=== PATIENT | male | born 1945 | race African-American/Black ===

== ENCOUNTER → 2016-07-22 | Outpatient (CLI) | payer OTHER ==
[~2016-07-22] MED LIST: ADULT LOW DOSE81 MG PO; ALDACTONE25 MG PO; AMARYL4 MG PO; ASPIRIN EC325 M1 PO; ASPIRIN EC81 M1 PO; AVELOX 400 MG400 M1 PO; BACTRIM DS TAB1 EACH PO; BACTROBAN22 GM; CARVEDILOL12.5 MG PO; CARVEDILOL25 MG PO; CITRATE OF MAG300 ML PO; CITROMA296 ML PO; COLACE 100 MG100 MG PO; COLACE100 MG PO; COREG; COUMADIN 2.5MG2.5 M1 PO; COUMADIN 5 MG TA5 M1 PO; COZAAR 25 MG TA25 MG PO; COZAAR 50 MG TA50 M1 PO; COZAAR 50 MG TA50 M2 PO; DEMADEX20 MG PO; ENTRESTO 24 MG1 EACH PO; FLEXERIL PO; FUROSEMIDE 40 M40 M1 PO; FUROSEMIDE 80 M80 M1 PO; GLIMEPIRIDE4 MG PO; IMDUR 30 MG TAB30 M1 PO; IMDUR 60 MG TAB60 M1 PO; JANTOVEN5 MG PO; KEFLEX500 MG PO; LANOXIN 0.120.125 M1 PG; LANOXIN 0.120.125 M1 PO; LANOXIN 0.250.25 M1 PO; LANTUS100 UNIT/M SUBQ; LANTUSSOLASTAR SUBQ; LASIX 40 MG TAB40 M2 PO; LASIX 80 MG TAB80 M1 PO; LIPITOR10 MG PO; LIPITOR80 MG PO; LORTAB 5 MG/5001 TA1 PO; METOLAZONE 5 MG5 MG PO; MILK OF MA2400 MG/10 PO; MILRINONE IV; MILRINONE L1 MG/1 ML; MIRALAX17 GM PO; MUCINEX600 MG PO; NORCO 5-325 TA1 EACH PO; NORCO 7.5-3251 EACH PO; NYQUIL D COLD295 ML PO; PACERONE 200 M200 M1 PO; PACERONE 200 M200 MG PO; PANTOPRAZOLE SO40 M1 PO; PROTONIX40 M1 PO; SENNA-S TABLET1 EACH PO; SIMVASTATIN40 MG PO; SIMVASTATIN80 MG PO; TORSEMIDE20 MG PO; TYLENOL325 MG PO; ZETIA10 MG PO; ZOCOR40 MG PO
[2016-07-22 07:18] VITALS: BP 122/63
[2016-07-22 07:57] LABS: CALCIUM 9.3 mg/dL (8.5-10.1); CREATININE 2.3 mg/dL (0.6-1.3); POTASSIUM 4.5 mmol/L (3.5-5.1); PROTIME 20.7 Seconds (9.3-11.4)
== END ==
LOC: CATH 06:54
PROVIDERS: Internal Medicine Cardiovascular Disease
DX: I50.9 Heart failure, unspecified (principal)

== ENCOUNTER → 2016-07-26 | Outpatient (CLI) | payer OTHER | LOC: HYPER 06:58 | DX: I87.332 Chronic venous hypertension (idiopathic) with ulcer and inflammation of left lower extremity (principal); L97.821 Non-pressure chronic ulcer of other part of left lower leg limited to breakdown of skin; I73.9 Peripheral vascular disease, unspecified; I48.91 Unspecified atrial fibrillation; E11.40 Type 2 diabetes mellitus with diabetic neuropathy, unspecified; Z79.4 Long term (current) use of insulin; I11.0 Hypertensive heart disease with heart failure; I50.22 Chronic systolic (congestive) heart failure; Z87.891 Personal history of nicotine dependence ==

== ENCOUNTER → 2016-07-29 | Outpatient (CLI) | payer OTHER ==
[2016-07-29 07:09] VITALS: BP 104/56
[2016-07-29 07:49] LABS: INR 1.4; PROTIME 14.7 Seconds (9.3-11.4)
[2016-07-29 08:04] LABS: CALCIUM 9.3 mg/dL (8.5-10.1); CREATININE 2.5 mg/dL (0.6-1.3)
== END ==
LOC: CATH 06:25
PROVIDERS: Internal Medicine Cardiovascular Disease
DX: I50.9 Heart failure, unspecified (principal)

== ENCOUNTER → 2016-08-05 | Outpatient (CLI) | payer OTHER ==
[2016-08-05 07:21] VITALS: BP 107/60
[2016-08-05 07:42] LABS: CALCIUM 9.4 mg/dL (8.5-10.1); CREATININE 2.3 mg/dL (0.6-1.3); POTASSIUM 4.1 mmol/L (3.5-5.1)
[2016-08-05 07:50] LABS: INR 2.2
[2016-08-05 07:54] LABS: PROTIME 22.7 Seconds (9.3-11.4)
== END ==
LOC: CATH 06:46
PROVIDERS: Internal Medicine Cardiovascular Disease
DX: I50.9 Heart failure, unspecified (principal)

== ENCOUNTER → 2016-09-30 | Outpatient (CLI) | payer OTHER ==
[2016-09-30 07:04] VITALS: BP 119/56
[2016-09-30 07:45] LABS: CALCIUM 8.5 mg/dL (8.5-10.1); CREATININE 2.4 mg/dL (0.6-1.3)
[2016-09-30 07:46] LABS: INR 4.1; PROTIME 42.2 Seconds (9.3-11.4)
== END ==
LOC: CATH 06:38
PROVIDERS: Internal Medicine Cardiovascular Disease
DX: I50.9 Heart failure, unspecified (principal)

== ENCOUNTER → 2016-10-07 | Outpatient (CLI) | payer OTHER ==
[2016-10-07 07:18] VITALS: BP 119/59
[2016-10-07 07:41] LABS: CALCIUM 9.8 mg/dL (8.5-10.1); CREATININE 2.1 mg/dL (0.6-1.3); POTASSIUM 4.5 mmol/L (3.5-5.1)
[2016-10-07 07:56] LABS: INR 1.5; PROTIME 15.7 Seconds (9.3-11.4)
== END | disposition home or self-care (01) ==
LOC: CATH 09-23 07:54
PROVIDERS: Internal Medicine Cardiovascular Disease
DX: T82.598A Other mechanical complication of other cardiac and vascular devices and implants, initial encounter (principal); I50.23 Acute on chronic systolic (congestive) heart failure; N18.9 Chronic kidney disease, unspecified; E11.65 Type 2 diabetes mellitus with hyperglycemia; J44.1 Chronic obstructive pulmonary disease with (acute) exacerbation

== ENCOUNTER → 2016-10-12 | Outpatient (CLI) | payer OTHER | LOC: HYPER 07:08 | DX: I87.332 Chronic venous hypertension (idiopathic) with ulcer and inflammation of left lower extremity (principal); E11.622 Type 2 diabetes mellitus with other skin ulcer; L97.822 Non-pressure chronic ulcer of other part of left lower leg with fat layer exposed; E11.51 Type 2 diabetes mellitus with diabetic peripheral angiopathy without gangrene; I48.91 Unspecified atrial fibrillation; E11.40 Type 2 diabetes mellitus with diabetic neuropathy, unspecified; I50.22 Chronic systolic (congestive) heart failure; Z79.4 Long term (current) use of insulin; Z79.84 Long term (current) use of oral hypoglycemic drugs; Z86.73 Personal history of transient ischemic attack (TIA), and cerebral infarction without residual deficits; Z87.891 Personal history of nicotine dependence ==

== ENCOUNTER → 2016-10-21 | Outpatient (CLI) | payer OTHER ==
[2016-10-21 07:24] VITALS: BP 110/61
[2016-10-21 07:42] LABS: CALCIUM 10.1 mg/dL (8.5-10.1); CREATININE 2.7 mg/dL (0.7-1.3); POTASSIUM 4.1 mmol/L (3.5-5.1)
[2016-10-21 07:53] LABS: INR 1.6; PROTIME 16.6 Seconds (9.3-11.4)
== END ==
LOC: CATH 10-14 07:54
PROVIDERS: Internal Medicine Cardiovascular Disease
DX: I50.23 Acute on chronic systolic (congestive) heart failure (principal); I50.9 Heart failure, unspecified; N18.9 Chronic kidney disease, unspecified; E11.65 Type 2 diabetes mellitus with hyperglycemia; J44.1 Chronic obstructive pulmonary disease with (acute) exacerbation

== ENCOUNTER → 2016-11-01 | Outpatient (CLI) | payer OTHER ==
--- NOTE | ~2016-11-01 | 2DMMODE ---
[facility] [place] [address] 2 D/M-MODE ECHOCARDIOGRAM Name: FRYRASHIDA JR Room #: REG [facility]#: [id number] Admission: 11/01/16 Attend Phys: Mohan Kilpatrick MD Discharge: Date of : 41 Date of Service: 11/01/16 1211 Report #: [id number] THIS REPORT FOR: //name// APPROVED REPORT Study performed: 11/01/2016 10:21:55 EXAM: Comprehensive 2D, Doppler, and color-flow Echocardiogram Patient Location: Out-Patient Blood Pressure: 132/79 mmHg HR: 70 bpm Other Information Study Quality: Adequate Indications Ischemic cardiomyopathy. Hx: CABG, CHF, pacer/defibrillator, HTN, HLP, PVD 2D Dimensions RVDd: 37.42 mm LVEF(%): 21.22 (>50%) IVSd: 10.51 (7-11mm) LVOT Diam: 21.52 (18-24mm) LVDd: 78.30 mm PWd: 9.06 (7-11mm) Ascending Aorta: 32.31 mm LVDs: 70.40 (25-40mm) Aortic Root: 33.27 mm Modi's LVEF: 21.22 % Volumes Left Atrial Volume (Systole) Single Plane 4CH: 82.13 mL Single Plane 2CH: 60.68 mL LA ESV Index: 38.00 mL/m2 Aortic Valve AoV Peak Kalpesh.: 1.68 m/s AO Peak Gr.: 11.78 mmHg LV Max P.51 mmHg LV Max: 0.61 m/s Mitral Valve E/A Ratio: 0.8 MV Decel. Time: 152.38 ms MV E Max Kalpesh.: 0.94 m/s MV A Kalpesh.: 1.20 m/s [facility] [place] [address] 2 D/M-MODE ECHOCARDIOGRAM Name: RASHIDA FRY Room #: REG [facility]#: [id number] Admission: 11/01/16 Attend Phys: Mohan Kilpatrick MD Discharge: Date of : 41 Date of Service: 11/01/16 1211 Report #: [id number] MV PHT: 44.19 ms Pulmonary Valve PV Peak Kalpesh.: 0.76 m/s PV Peak Gr.: 2.30 mmHg Tricuspid Valve TR Peak Kalpesh.: 2.92 m/s RAP Estimate: 5.00 mmHg TR Peak Gr.: 34.21 mmHg RVSP: 39.00 mmHg Left Ventricle Left ventricle is severely dilated. There is normal left ventricular wall thickness. Left ventricular systolic function is severely decreased. LVEF is 15-20%. Grade I - abnormal relaxation pattern. Right Ventricle The right ventricle is normal size. Right ventricle is mildly hypokinetic. Pacemaker lead is present in the right ventricle. Atria Left atrium is mildly dilated. The right atrium size is normal. Aortic Valve Aortic valve is thickened and calcified. Trace aortic regurgitation. There is no aortic valvular stenosis. Mitral Valve Mitral valve leaflets are mildly thickened. Moderate mitral regurgitation. Tricuspid Valve The tricuspid valve is normal in structure. There is at least mild tricuspid regurgitation; eccentric jet, difficult to assess. The right atrial pressure is estimated at 5 mmHg.There is mild pulmonary hypertension with an estimated PAP of 39mmHg. Pulmonic Valve The pulmonary valve is normal in structure. Trace pulmonic regurgitation. Great Vessels The aortic root is normal in size. The ascending aorta is normal in size. Descending aorta is not well visualized. IVC is normal in size and collapses >50% with inspiration. [address] [address] 2 D/M-MODE ECHOCARDIOGRAM Name: FRYRASHIDA Room #: REG [facility]#: [id number] Admission: 11/01/16 Attend Phys: Mohan Kilpatrick MD Discharge: Date of : 41 Date of Service: 11/01/16 1211 Report #: [id number] Pericardium There is no pericardial effusion. <Conclusion> Left ventricle is severely dilated. Left ventricular systolic function is severely decreased. The right ventricle is normal size. Left atrium is mildly dilated. Aortic valve is thickened and calcified. Moderate mitral regurgitation. There is at least mild tricuspid regurgitation; eccentric jet, difficult to assess. The right atrial pressure is estimated at 5 mmHg.There is mild pulmonary hypertension with an estimated PAP of 39mmHg. <ELECTRONICALLY SIGNED> By: Mohan Kilpatrick MD 11/01/16 121 10 10 Mohan Kilpatrick MD /INF
== END ==
LOC: CV 11:15
DX: I25.5 Ischemic cardiomyopathy (principal); I50.9 Heart failure, unspecified; I10 Essential (primary) hypertension; E78.5 Hyperlipidemia, unspecified; Z95.1 Presence of aortocoronary bypass graft; Z95.0 Presence of cardiac pacemaker

== ENCOUNTER → 2016-11-03 | Outpatient (CLI) | payer OTHER | LOC: HYPER | DX: I87.332 Chronic venous hypertension (idiopathic) with ulcer and inflammation of left lower extremity (principal); L97.822 Non-pressure chronic ulcer of other part of left lower leg with fat layer exposed; E11.622 Type 2 diabetes mellitus with other skin ulcer; E11.40 Type 2 diabetes mellitus with diabetic neuropathy, unspecified; E11.51 Type 2 diabetes mellitus with diabetic peripheral angiopathy without gangrene; I48.2 Chronic atrial fibrillation; I50.22 Chronic systolic (congestive) heart failure; Z79.84 Long term (current) use of oral hypoglycemic drugs; Z79.4 Long term (current) use of insulin; Z86.73 Personal history of transient ischemic attack (TIA), and cerebral infarction without residual deficits; Z87.891 Personal history of nicotine dependence ==

== ENCOUNTER → 2016-11-04 | Outpatient (CLI) | payer OTHER ==
[2016-11-04 07:45] LABS: CALCIUM 9.3 mg/dL (8.5-10.1); CREATININE 2.4 mg/dL (0.7-1.3); POTASSIUM 4.6 mmol/L (3.5-5.1)
[2016-11-04 07:46] VITALS: BP 113/66
[2016-11-04 08:14] LABS: PROTIME 23.3 Seconds (9.3-11.4)
[2016-11-04 08:22] LABS: INR 2.2
[2016-11-04 08:28] LABS: ALBUMIN 3.6 g/dL (3.4-5.0); DIRECT BILIRUBIN 0.2 mg/dL (<0.1-0.3); TOTAL BILIRUBIN 0.8 mg/dL (<0.1-1.0); TOTAL PROTEIN 7.9 g/dL (6.4-8.2)
== END ==
LOC: CATH
PROVIDERS: Internal Medicine Cardiovascular Disease
DX: I50.9 Heart failure, unspecified (principal)

== ENCOUNTER → 2016-11-18 | Outpatient (CLI) | payer OTHER ==
[2016-11-18 07:17] VITALS: BP 118/64
[2016-11-18 07:51] LABS: CREATININE 1.8 mg/dL (0.7-1.3); POTASSIUM 4.4 mmol/L (3.5-5.1)
[2016-11-18 07:54] LABS: INR 1.5; PROTIME 15.2 Seconds (9.3-11.4)
== END ==
LOC: OPONC 06:48
PROVIDERS: Internal Medicine Cardiovascular Disease
DX: I50.9 Heart failure, unspecified (principal)
CPT/HCPCS: 95113

== ENCOUNTER → 2016-12-09 | Outpatient (CLI) | payer OTHER ==
[2016-12-09 07:05] VITALS: BP 106/65
[2016-12-09 07:44] LABS: CREATININE 2.6 mg/dL (0.7-1.3); POTASSIUM 4.6 mmol/L (3.5-5.1)
[2016-12-09 07:46] LABS: INR 2.1
[2016-12-09 07:48] LABS: PROTIME 22.2 Seconds (9.3-11.4)
== END ==
LOC: CATH 06:38
PROVIDERS: Internal Medicine Cardiovascular Disease
DX: I50.9 Heart failure, unspecified (principal)

== ENCOUNTER 2016-12-29 07:14 | Emergency (ER) | payer OTHER ==
[~2016-12-29] VITALS: Ht 172.7 cm; Wt 85.3 kg
--- NOTE | ~2016-12-29 | EKG ---
[address] [address] [place] [address] ELECTROCARDIOGRAM REPORT Name: RASHIDA FRY Room #: REG [facility]#: [id number] Admission: 12/29/16 Attend Phys: Discharge: Date of : 41 Report #: [id number] THIS REPORT FOR: //name// [facility] ED Test Date: 2016-12-29 Test Time: 07:19:19 Pat Name: RASHIDA FRY Department: Room: Gender: Estimator Printing Plate Making: ZOHRA : 1945 Requested By: Kenny Fermin Order Number: [id number] MD: Jai Cox Measurements Intervals [place] Rate: 93 P: 83 LA: 152 QRS: 234 QRSD: 179 T: 52 QT: 411 QTc: 512 Interpretive Statements Atrial-sensed ventricular-paced complexes No further analysis attempted due to paced rhythm Baseline wander in lead(s) V6 Compared to ECG 07/05/2016 18:46:05 No significant changes Electronically Signed On 12-29-2016 8:46:35 CDT by Jai Cox [email or web address] <ELECTRONICALLY SIGNED> By: Jai Cox MD, [facility] 12/29/16 0846 8 8 Jai Cox MD, [facility] /EPI
[2016-12-29 07:48] LABS: ABSOLUTE NEUTROPHILS 6.1 thou/uL (1.4-8.2); BASOPHILS 0.6 % (0.0-2.0); EOSINOPHILS 0.8 % (0.0-3.0); HEMATOCRIT 47.7 % (42.0-52.0); HEMOGLOBIN 15.3 gm/dL (14.0-18.0); LYMPHOCYTES 14.1 % (24.0-44.0); MCH 25.9 pg (26.0-34.0); MCV 80.9 fL (80.0-100.0); MONOCYTES 10.7 % (1.0-8.0); PLATELET COUNT 145 thou/uL (150-400); POLYS 73.8 % (36.0-66.0); RDW 16.7 % (10.5-14.5); WBC 8.3 thou/uL (4.0-11.0)
[2016-12-29 07:54] LABS: MANUAL DIFF NO
[2016-12-29 07:58] LABS: CALCIUM 9.1 mg/dL (8.5-10.1); CREATININE 2.6 mg/dL (0.7-1.3); POTASSIUM 4.4 mmol/L (3.5-5.1)
[2016-12-29 08:01] LABS: APTT 27.8 Seconds (24.5-32.8); INR 1.9
[2016-12-29 08:05] LABS: PROTIME 19.8 Seconds (9.3-11.4)
[2016-12-29] MEDS ORDERED: AMARYL4 MG PO (08:12)
[2016-12-29] MEDS ORDERED: DEMADEX20 MG PO (08:12)
[2016-12-29] MEDS ORDERED: ALDACTONE25 MG PO (08:13)
[2016-12-29] MEDS ORDERED: GENTAMICIN 0.1%15 G2 TOP (08:13)
[2016-12-29] MEDS ORDERED: POTASSIUM20 PO (08:13)
[2016-12-29] MEDS ORDERED: LIPITOR10 MG PO (08:14)
[2016-12-29] MEDS ORDERED: ENTRESTO 24 MG1 EACH PO (08:14)
[2016-12-29] MEDS ORDERED: CARVEDILOL12.5 MG PO (08:14)
[2016-12-29 08:31] LABS: ALBUMIN 3.4 g/dL (3.4-5.0); CK-MB MASS 2.8 ng/mL (<0.5-3.6); MAGNESIUM 2.2 mg/dL (1.8-2.4); TOTAL BILIRUBIN 0.8 mg/dL (<0.1-1.0); TOTAL PROTEIN 7.5 g/dL (6.4-8.2); TROPONIN-I 0.04 ng/mL (<0.04-0.07)
[2016-12-29] MEDS ORDERED: VENTOLIN HFA 1818 GM INH (09:04)
[2016-12-29 09:28] VITALS: BP 127/64
== END 2016-12-29 09:30 | disposition home or self-care (01) ==
LOC: ER 07:14
PROVIDERS: Emergency Medicine
DX: J98.11 Atelectasis (principal); I13.0 Hypertensive heart and chronic kidney disease with heart failure and stage 1 through stage 4 chronic kidney disease, or unspecified chronic kidney disease; E11.22 Type 2 diabetes mellitus with diabetic chronic kidney disease; N18.3 Chronic kidney disease, stage 3 (moderate); I50.9 Heart failure, unspecified; E78.00 Pure hypercholesterolemia, unspecified; I25.5 Ischemic cardiomyopathy; F10.99 Alcohol use, unspecified with unspecified alcohol-induced disorder; Z88.8 Allergy status to other drugs, medicaments and biological substances; Z86.73 Personal history of transient ischemic attack (TIA), and cerebral infarction without residual deficits; Z95.1 Presence of aortocoronary bypass graft; Z79.4 Long term (current) use of insulin; Z87.891 Personal history of nicotine dependence

== ENCOUNTER 2017-01-23 11:09 | Emergency (ER) | payer OTHER ==
[~2017-01-23] VITALS: Ht 172.7 cm; Wt 85.7 kg
[~2017-01-23 11:09] MED LIST changes: +GENTAMICIN 0.1%15 G2 TOP; +MUCINEX DM TABL1 TA1 PO; +POTASSIUM20 PO; +VENTOLIN HFA 1818 GM INH
[2017-01-23 12:02] LABS: URINE BILIRUBIN NEGATIVE (Negative); URINE BLOOD TRACE (Negative); URINE COLOR YELLOW; URINE GLUCOSE-RANDOM* NEGATIVE (Negative); URINE KETONES NEGATIVE (Negative); URINE LEUKOCYTES-REFLEX NEGATIVE (Negative); URINE PROTEIN (DIPSTICK) NEGATIVE (Negative); URINE UROBILINOGEN 0.2 E.U./dl (0.2-1.0)
[2017-01-23 12:25] LABS: ABSOLUTE NEUTROPHILS 6.2 thou/uL (1.4-8.2); BASOPHILS 0.9 % (0.0-2.0); EOSINOPHILS 1.2 % (0.0-3.0); HEMATOCRIT 43.2 % (42.0-52.0); HEMOGLOBIN 14.4 gm/dL (14.0-18.0); LYMPHOCYTES 10.4 % (24.0-44.0); MCHC 33.3 g/dL (28.0-37.0); MCV 78.1 fL (80.0-100.0); MONOCYTES 10.9 % (1.0-8.0); PLATELET COUNT 154 thou/uL (150-400); POLYS 76.6 % (36.0-66.0); RBC 5.52 mil/uL (4.50-6.00); RDW 16.2 % (10.5-14.5)
[2017-01-23 12:27] LABS: MANUAL DIFF NO
[2017-01-23 12:36] LABS: CALCIUM 9.7 mg/dL (8.5-10.1); CREATININE 3.2 mg/dL (0.7-1.3); POTASSIUM 4.5 mmol/L (3.5-5.1)
[2017-01-23 12:47] LABS: ALBUMIN 3.5 g/dL (3.4-5.0); TOTAL BILIRUBIN 1.1 mg/dL (<0.1-1.0); TOTAL PROTEIN 7.7 g/dL (6.4-8.2)
[2017-01-23 14:32] VITALS: BP 120/48
== END 2017-01-23 14:33 | disposition home or self-care (01) ==
LOC: ER 11:09
PROVIDERS: Physician Assistant
DX: E86.9 Volume depletion, unspecified (principal); I48.91 Unspecified atrial fibrillation; E78.00 Pure hypercholesterolemia, unspecified; I13.0 Hypertensive heart and chronic kidney disease with heart failure and stage 1 through stage 4 chronic kidney disease, or unspecified chronic kidney disease; E11.22 Type 2 diabetes mellitus with diabetic chronic kidney disease; N18.3 Chronic kidney disease, stage 3 (moderate); I50.9 Heart failure, unspecified; Z95.5 Presence of coronary angioplasty implant and graft; Z95.0 Presence of cardiac pacemaker; Z86.73 Personal history of transient ischemic attack (TIA), and cerebral infarction without residual deficits; Z88.8 Allergy status to other drugs, medicaments and biological substances; Z87.891 Personal history of nicotine dependence; Z79.4 Long term (current) use of insulin

== ENCOUNTER 2017-01-25 00:42 | Inpatient (IN) | payer OTHER ==
[~2017-01-25] VITALS: Ht 172.7 cm; Wt 88.0 kg
--- NOTE | ~2017-01-25 | EKG ---
[address] [address] ELECTROCARDIOGRAM REPORT Name: RASHIDA FRY Room #: 205-P ADM IN M.R.#: [id number] Admission: 01/25/17 Attend Phys: Mark Hamilton MD Discharge: Date of : 41 Report #: [id number] THIS REPORT FOR: //name// [facility] ED Test Date: 2017-01-25 Test Time: 01:12:29 Pat Name: RASHIDA FRY Department: Room: 205 Gender: M Aluminum Welder: [id number] : 1945 Requested By: Catreina Madrid Order Number: [id number] MD: Noel Alvarado Measurements Intervals [place] Rate: 72 P: 74 [place]: 157 QRS: 233 QRSD: 196 T: 73 QT: 483 QTc: 529 Interpretive Statements Sinus rhythm RBBB Compared to ECG 01/20/2017 02:31:25 No significant changes Electronically Signed On 01-25-2017 8:14:45 CDT by Noel Alvarado [email or web address] <ELECTRONICALLY SIGNED> By: Noel Alvarado MD 01/25/17 08 1 1 Noel Alvarado MD /MOUNA
[2017-01-25 00:42] VITALS: BP 150/94
[2017-01-25 03:15] VITALS: BP 145/87
[2017-01-25 07:03] LABS: ABSOLUTE NEUTROPHILS 6.1 thou/uL (1.4-8.2); BASOPHILS 0.8 % (0.0-2.0); EOSINOPHILS 0.5 % (0.0-3.0); HEMOGLOBIN 14.1 gm/dL (14.0-18.0); LYMPHOCYTES 12.6 % (24.0-44.0); MCH 25.6 pg (26.0-34.0); MCHC 32.8 g/dL (28.0-37.0); MCV 78.1 fL (80.0-100.0); MONOCYTES 10.5 % (1.0-8.0); PLATELET COUNT 150 thou/uL (150-400); POLYS 75.6 % (36.0-66.0); RBC 5.51 mil/uL (4.50-6.00); RDW 15.8 % (10.5-14.5); WBC 8.1 thou/uL (4.0-11.0)
[2017-01-25 07:54] VITALS: BP 136/83
[2017-01-25 08:01] LABS: MANUAL DIFF NO
[2017-01-25 09:18] LABS: ABG SAMPLE TYPE ARTERIAL; BE(vivo) 1.3 mmol/L (-2 to +3); HCO3 25.3 mmol/L (22.0-26.0); LACTATE 1.75 mmol/L (0.5-2.0); O2(CT) 19.4 mL/dL (15.0-23.0); O2Hb 91.3 % (92.0-98.0); PCO2 38.1 mmHg (35.0-45.0); PO2 65.6 mmHg (80.0-100.0); STICK SITE R.BRACHIAL; sO2 93.7 % (92.0-98.0); tCO2 26.5 mmol/L (24.0-30.0)
[2017-01-25 09:39] LABS: INR 2.5; PROTIME 26.3 Seconds (9.3-11.4)
[2017-01-25 09:41] LABS: CALCIUM 9.5 mg/dL (8.5-10.1); CREATININE 3.1 mg/dL (0.7-1.3); POTASSIUM 4.9 mmol/L (3.5-5.1)
[2017-01-25 09:42] LABS: TROPONIN-I 1.95 ng/mL (<0.04-0.07)
[2017-01-25 09:50] LABS: ABG SAMPLE TYPE ARTERIAL; BE(vivo) -0.2 mmol/L (-2 to +3); HCO3 24.4 mmol/L (22.0-26.0); LACTATE 1.33 mmol/L (0.5-2.0); O2(CT) 20.3 mL/dL (15.0-23.0); PCO2 39.6 mmHg (35.0-45.0); PO2 111.2 mmHg (80.0-100.0); STICK SITE R.BRACHIAL; pH 7.407 (7.360-7.450); sO2 98.1 % (92.0-98.0); tCO2 25.6 mmol/L (24.0-30.0)
[2017-01-25 12:05] VITALS: BP 131/86
[2017-01-25 15:40] VITALS: BP 118/78
[2017-01-25 20:07] VITALS: BP 132/71
[2017-01-26 00:03] VITALS: BP 126/80
[2017-01-26 04:25] LABS: HEMATOCRIT 42.3 % (42.0-52.0); HEMOGLOBIN 13.7 gm/dL (14.0-18.0); MCH 25.5 pg (26.0-34.0); MCHC 32.5 g/dL (28.0-37.0); MCV 78.6 fL (80.0-100.0); RBC 5.38 mil/uL (4.50-6.00); RDW 16.1 % (10.5-14.5); WBC 8.5 thou/uL (4.0-11.0)
[2017-01-26 04:30] VITALS: BP 123/67
[2017-01-26 04:37] LABS: CALCIUM 9.3 mg/dL (8.5-10.1); CREATININE 2.9 mg/dL (0.7-1.3); POTASSIUM 4.4 mmol/L (3.5-5.1)
[2017-01-26 07:45] VITALS: BP 116/63
[2017-01-26 12:27] VITALS: BP 127/77
[2017-01-26 16:32] VITALS: BP 125/80
[2017-01-26 20:00] VITALS: BP 114/68
[2017-01-27 04:00] VITALS: BP 125/78
[2017-01-27 07:10] LABS: ALBUMIN 3.5 g/dL (3.4-5.0); CALCIUM 9.6 mg/dL (8.5-10.1); CREATININE 2.8 mg/dL (0.7-1.3); PHOSPHORUS 3.8 mg/dL (2.5-4.9); POTASSIUM 3.9 mmol/L (3.5-5.1)
[2017-01-27 07:53] VITALS: BP 121/71
[2017-01-27] MEDS ORDERED: DEMADEX 2020 MG/1 TA PO ×2 (08:48)
[2017-01-27 10:25] VITALS: BP 121/71
== END 2017-01-27 11:54 | disposition home or self-care (01) | DRG 291 ==
LOC: ER 00:42 → 2N 07:37
PROVIDERS: Emergency Medicine; Hospitalist; Internal Medicine Pulmonary Disease; Nurse Practitioner Gerontology
DX: I13.0 Hypertensive heart and chronic kidney disease with heart failure and stage 1 through stage 4 chronic kidney disease, or unspecified chronic kidney disease (principal); I50.23 Acute on chronic systolic (congestive) heart failure; J96.01 Acute respiratory failure with hypoxia; N17.9 Acute kidney failure, unspecified; E78.00 Pure hypercholesterolemia, unspecified; N18.3 Chronic kidney disease, stage 3 (moderate); I25.10 Atherosclerotic heart disease of native coronary artery without angina pectoris; I25.5 Ischemic cardiomyopathy; E78.5 Hyperlipidemia, unspecified; E11.22 Type 2 diabetes mellitus with diabetic chronic kidney disease; E11.51 Type 2 diabetes mellitus with diabetic peripheral angiopathy without gangrene; I48.2 Chronic atrial fibrillation; G47.9 Sleep disorder, unspecified; E66.9 Obesity, unspecified; Z68.29 Body mass index [BMI] 29.0-29.9, adult; I25.2 Old myocardial infarction; Z86.73 Personal history of transient ischemic attack (TIA), and cerebral infarction without residual deficits; Z95.1 Presence of aortocoronary bypass graft; Z95.0 Presence of cardiac pacemaker; Z89.611 Acquired absence of right leg above knee; Z79.899 Other long term (current) drug therapy; Z88.8 Allergy status to other drugs, medicaments and biological substances; Z87.891 Personal history of nicotine dependence; Z79.01 Long term (current) use of anticoagulants
CPT/HCPCS: 10081

== ENCOUNTER 2017-02-03 03:03 | Inpatient (IN) | payer OTHER ==
[~2017-02-03] VITALS: Ht 172.7 cm; Wt 85.7 kg
--- NOTE | ~2017-02-03 | EKG ---
[address] [address] ELECTROCARDIOGRAM REPORT Name: ROME FRYLIE Dell Room #: 214-P ADM IN M.R.#: [id number] Admission: 02/03/17 Attend Phys: Guilherme Rockwell DO Discharge: Date of : 41 Report #: [id number] THIS REPORT FOR: //name// [facility] ED Test Date: 2017-02-03 Test Time: 03:12:23 Pat Name: RASHIDA FRY Department: Room: 214 Gender: M Macerator Operator: CLARITA : 1945 Requested By: Rachid Garces Order Number: [id number] MD: Jai Cox Measurements Intervals [place] Rate: 67 P: 0 IA: 59 QRS: 236 QRSD: 190 T: 107 QT: 509 QTc: 538 Interpretive Statements A-V dual-paced rhythm No further analysis attempted due to paced rhythm Compared to ECG 01/25/2017 01:12:29 No significant change was found Electronically Signed On 02-03-2017 17:35:14 CDT by Jai Cox [email or web address] <ELECTRONICALLY SIGNED> By: Jai Cox MD, [facility] 02/03/17 1735 0312 0312 Jai Cox MD, [facility] /EPI
[~2017-02-03 03:03] MED LIST changes: +DEMADEX 2020 MG/1 TA PO
[2017-02-03 03:30] VITALS: BP 146/71
[2017-02-03 04:02] LABS: ABSOLUTE NEUTROPHILS 6.2 thou/uL (1.4-8.2); BASOPHILS 0.9 % (0.0-2.0); EOSINOPHILS 0.6 % (0.0-3.0); HEMATOCRIT 41.5 % (42.0-52.0); HEMOGLOBIN 13.6 gm/dL (14.0-18.0); LYMPHOCYTES 12.6 % (24.0-44.0); MCH 25.7 pg (26.0-34.0); MCHC 32.9 g/dL (28.0-37.0); MCV 77.9 fL (80.0-100.0); MONOCYTES 11.9 % (1.0-8.0); PLATELET COUNT 177 thou/uL (150-400); RBC 5.32 mil/uL (4.50-6.00); RDW 16.1 % (10.5-14.5); WBC 8.3 thou/uL (4.0-11.0)
[2017-02-03 04:06] LABS: MANUAL DIFF NO
[2017-02-03 04:09] LABS: CALCIUM 9.4 mg/dL (8.5-10.1); CREATININE 2.6 mg/dL (0.7-1.3); POTASSIUM 4.9 mmol/L (3.5-5.1)
[2017-02-03 04:22] LABS: TROPONIN-I 0.09 ng/mL (<0.04-0.07)
[2017-02-03] MEDS ORDERED: ASPIR 8181 MG PO (04:37)
[2017-02-03] MEDS ORDERED: COZAAR 50 MG TA50 M2 PO (04:37)
[2017-02-03] MEDS ORDERED: COLACE100 MG PO (04:37)
[2017-02-03] MEDS ORDERED: HYDROCODONE-AP1 EAC6 (04:37)
[2017-02-03] MEDS ORDERED: IMDUR 60 MG TAB60 M1 PO (04:38)
[2017-02-03] MEDS ORDERED: MILRINONE-20 MG/100 IV (04:39)
[2017-02-03] MEDS ORDERED: AMITIZA 24 MCG24 MCG (04:39)
[2017-02-03] MEDS ORDERED: BACTROBAN CREAM30 G1 (04:40)
[2017-02-03] MEDS ORDERED: POTASSIUM20 (04:40)
[2017-02-03 04:48] LABS: INR 2.6; PROTIME 26.6 Seconds (9.3-11.4)
[2017-02-03 06:57] VITALS: BP 141/92
[2017-02-03 07:00] VITALS: BP 126/78
[2017-02-03 12:00] VITALS: BP 120/72
[2017-02-03 16:00] VITALS: BP 98/53
[2017-02-04 00:25] VITALS: BP 104/55
[2017-02-04 03:57] VITALS: BP 125/64
[2017-02-04 05:33] LABS: INR 3.1; PROTIME 30.9 Seconds (9.3-11.4)
[2017-02-04 07:00] VITALS: BP 113/67
[2017-02-04 11:00] VITALS: BP 108/59
[2017-02-04 15:19] VITALS: BP 101/62
[2017-02-04 20:00] VITALS: BP 116/67
[2017-02-05 04:00] VITALS: BP 124/69
[2017-02-05 04:10] LABS: HEMATOCRIT 43.1 % (42.0-52.0); HEMOGLOBIN 13.9 gm/dL (14.0-18.0); MCH 25.3 pg (26.0-34.0); MCHC 32.3 g/dL (28.0-37.0); MCV 78.5 fL (80.0-100.0); PLATELET COUNT 202 thou/uL (150-400); RBC 5.48 mil/uL (4.50-6.00); RDW 16.3 % (10.5-14.5); WBC 7.8 thou/uL (4.0-11.0)
[2017-02-05 04:11] LABS: INR 3.8; PROTIME 37.8 Seconds (9.3-11.4)
[2017-02-05 04:17] LABS: MANUAL DIFF YES
[2017-02-05 04:34] LABS: CALCIUM 9.1 mg/dL (8.5-10.1); CREATININE 2.5 mg/dL (0.7-1.3); POTASSIUM 4.1 mmol/L (3.5-5.1)
[2017-02-05 04:57] LABS: ABSOLUTE NEUTROPHILS 5.5 thou/uL (1.4-8.2); ANISOCYTOSIS 1+; ATYPICAL LYMPHS 2 %; TOTAL CELL COUNT 100
[2017-02-05 07:20] VITALS: BP 115/70
[2017-02-05] MEDS ORDERED: CEPHALEXIN 500500 M3 PO (09:32)
[2017-02-05] MEDS ORDERED: PACERONE 200 M200 M1 PO (09:32)
[2017-02-05 11:00] VITALS: BP 109/52
[2017-02-05 12:36] VITALS: BP 109/52
== END 2017-02-05 14:30 | disposition home or self-care (01) | DRG 291 ==
LOC: ER 03:03 → 2N 06:22 → EROBS 06:22 → 2N 07:31
PROVIDERS: Emergency Medicine; Family Medicine; Internal Medicine Cardiovascular Disease; Nurse Practitioner Gerontology
DX: I13.0 Hypertensive heart and chronic kidney disease with heart failure and stage 1 through stage 4 chronic kidney disease, or unspecified chronic kidney disease (principal); I50.23 Acute on chronic systolic (congestive) heart failure; I48.91 Unspecified atrial fibrillation; I25.5 Ischemic cardiomyopathy; I25.10 Atherosclerotic heart disease of native coronary artery without angina pectoris; E78.5 Hyperlipidemia, unspecified; R09.3 Abnormal sputum; E11.22 Type 2 diabetes mellitus with diabetic chronic kidney disease; N18.3 Chronic kidney disease, stage 3 (moderate); E78.00 Pure hypercholesterolemia, unspecified; Z96.89 Presence of other specified functional implants; Z95.1 Presence of aortocoronary bypass graft; Z86.73 Personal history of transient ischemic attack (TIA), and cerebral infarction without residual deficits; Z79.4 Long term (current) use of insulin; Z89.611 Acquired absence of right leg above knee; Z88.8 Allergy status to other drugs, medicaments and biological substances; Z87.891 Personal history of nicotine dependence; Z79.82 Long term (current) use of aspirin; Z79.899 Other long term (current) drug therapy
CPT/HCPCS: 10081

== ENCOUNTER → 2017-02-10 | Outpatient (CLI) | payer OTHER ==
[~2017-02-10] MED LIST changes: +AMITIZA 24 MCG24 MCG; +ASPIR 8181 MG PO; +BACTROBAN CREAM30 G1; +CEPHALEXIN 500500 M3 PO; +HYDROCODONE-AP1 EAC6; +MILRINONE-20 MG/100 IV; +POTASSIUM20
[2017-02-10 08:11] LABS: CALCIUM 9.6 mg/dL (8.5-10.1); CREATININE 2.3 mg/dL (0.7-1.3); POTASSIUM 4.7 mmol/L (3.5-5.1)
[2017-02-10 08:20] LABS: PROTIME 38.9 Seconds (9.3-11.4)
[2017-02-10 08:22] LABS: INR 4.1
== END ==
LOC: CATH 07:24
PROVIDERS: Internal Medicine Cardiovascular Disease
DX: I50.9 Heart failure, unspecified (principal)

== ENCOUNTER → 2017-02-17 | Outpatient (CLI) | payer OTHER ==
[2017-02-17 07:21] VITALS: BP 112/60
[2017-02-17 07:41] LABS: CALCIUM 9.8 mg/dL (8.5-10.1); CREATININE 2.5 mg/dL (0.7-1.3); POTASSIUM 4.3 mmol/L (3.5-5.1)
[2017-02-17 07:45] LABS: INR 1.4; PROTIME 14.6 Seconds (9.3-11.4)
== END ==
LOC: CATH 06:55
PROVIDERS: Internal Medicine Cardiovascular Disease
DX: I50.9 Heart failure, unspecified (principal)

== ENCOUNTER → 2017-02-21 | Outpatient (CLI) | payer OTHER ==
--- NOTE | ~2017-02-21 | SLE ---
[facility] [place] [address] [place] [address] POLYSOMNOGRAPHY STUDY Name: ROME FRYCARMEN Sharpe JR Room #: REG [facility]#: [id number] Admission: 02/21/17 Attend Phys: Teddy Reyes MD Discharge: Date of : 43 Report #: [id number] THIS REPORT FOR: //name// CC: Teddy Lizarraga The patient is 71-year-old, height 5 feet 8 inches and weight 191 pounds, usually goes to bed at midnight, gets out of bed at 10:00 a.m. or 11:00 a.m., does not feel refreshed. Positive snoring and daytime somnolence. COMMENTS: Possible Nestor-Ray respirations noted and PVCs. BASELINE PORTION: Total recording time 148 minutes, sleep efficiency 64%. DIAGNOSTIC RESPIRATORY SUMMARY: Central apnea 20, obstructive apnea 2, hypopnea 32. Apnea-hypopnea index 34 events per sleep hour. Non-REM AHI 42, REM AHI 8, supine AHI 62, left lateral 35, right lateral 25. Periodic limb movement with arousal index 0 events per sleep hour. Low oxygen saturation 86%, spending 3% of recording time less than 90%. CPAP TITRATION: Titrated at 5 and 7 cm water pressure. IMPRESSION: 1. Obstructive sleep apnea/hypopnea, G47.33. 2. Possible Nestor-Ray respirations. 3. A definite CPAP/BiPAP setting was not established. 4. Arrhythmias noted. SUGGESTIONS: 1. In addition to specific therapy, the patient should be cautioned regarding driving or operating dangerous machinery unless fully alert. The patient should be cautioned regarding the use of respiratory depressants. 2. Oral appliance or appropriate surgery may be considered with appropriate followup. 3. A trial of auto titrating CPAP between 5 and 10 cm water pressure is initially recommended. During our study, a Respironics Char View large mask was used with heated humidity. 4. If central apneas continue to occur, would bring the patient back in for a BiPAP/BiPAP ST study. 5. Further evaluation regarding arrhythmias is recommended. 6. Please do not hesitate to contact me if I may be of further assistance. By: 03 19 Teddy Reyes MD /nt
== END ==
LOC: SLEEPLAB 15:14
DX: G47.33 Obstructive sleep apnea (adult) (pediatric) (principal)

== ENCOUNTER → 2017-02-24 | Outpatient (CLI) | payer OTHER ==
[2017-02-24 07:03] VITALS: BP 118/62
[2017-02-24 07:29] LABS: CALCIUM 9.6 mg/dL (8.5-10.1); CREATININE 2.5 mg/dL (0.7-1.3); POTASSIUM 4.4 mmol/L (3.5-5.1)
[2017-02-24 07:36] LABS: INR 2.4; PROTIME 24.5 Seconds (9.3-11.4)
== END ==
LOC: CATH 06:37
PROVIDERS: Internal Medicine Cardiovascular Disease
DX: I50.9 Heart failure, unspecified (principal)

== ENCOUNTER → 2017-03-24 | Outpatient (CLI) | payer OTHER ==
[2017-03-24 07:24] VITALS: BP 103/56
[2017-03-24 07:44] LABS: CALCIUM 9.8 mg/dL (8.5-10.1); CREATININE 2.7 mg/dL (0.7-1.3); POTASSIUM 4.5 mmol/L (3.5-5.1)
[2017-03-24 07:48] LABS: INR 1.3; PROTIME 13.2 Seconds (9.3-11.4)
== END ==
LOC: CATH 06:49
PROVIDERS: Internal Medicine Cardiovascular Disease
DX: I50.9 Heart failure, unspecified (principal)

== ENCOUNTER → 2017-04-07 | Outpatient (CLI) | payer OTHER ==
[2017-04-07 07:28] VITALS: BP 99/57
[2017-04-07 07:37] LABS: CALCIUM 9.2 mg/dL (8.5-10.1); CREATININE 2.5 mg/dL (0.7-1.3); POTASSIUM 4.5 mmol/L (3.5-5.1)
[2017-04-07 07:39] LABS: INR 1.7; PROTIME 17.4 Seconds (9.3-11.4)
== END ==
LOC: CATH 03-03 10:16
PROVIDERS: Internal Medicine Cardiovascular Disease
DX: I50.9 Heart failure, unspecified (principal)

== ENCOUNTER → 2017-04-21 | Outpatient (CLI) | payer OTHER ==
[2017-04-21 07:16] VITALS: BP 114/59
[2017-04-21 07:57] LABS: CALCIUM 9.6 mg/dL (8.5-10.1); CREATININE 2.4 mg/dL (0.7-1.3); POTASSIUM 4.4 mmol/L (3.5-5.1)
[2017-04-21 07:58] LABS: INR 2.7; PROTIME 27.7 Seconds (9.3-11.4)
== END ==
LOC: CATH 03-10 10:34
PROVIDERS: Internal Medicine Cardiovascular Disease
DX: I50.9 Heart failure, unspecified (principal)

== ENCOUNTER → 2017-05-19 | Outpatient (CLI) | payer OTHER ==
[2017-05-19 07:35] VITALS: BP 111/48
[2017-05-19 07:47] LABS: INR 1.2; PROTIME 12.3 Seconds (9.3-11.4)
[2017-05-19 07:50] LABS: CALCIUM 9.5 mg/dL (8.5-10.1); CREATININE 2.7 mg/dL (0.7-1.3); POTASSIUM 4.2 mmol/L (3.5-5.1)
== END ==
LOC: CATH 06:48
PROVIDERS: Internal Medicine Cardiovascular Disease
DX: I50.9 Heart failure, unspecified (principal)

== ENCOUNTER → 2017-06-02 | Outpatient (CLI) | payer OTHER ==
[2017-06-02 07:51] LABS: PROTIME 20.7 Seconds (9.3-11.4)
[2017-06-02 10:33] VITALS: BP 114/63
[2017-06-02 10:59] LABS: CALCIUM 9.7 mg/dL (8.5-10.1); CREATININE 3.1 mg/dL (0.7-1.3); POTASSIUM 4.5 mmol/L (3.5-5.1)
== END ==
LOC: CATH 06:56
PROVIDERS: Internal Medicine Cardiovascular Disease
DX: I50.9 Heart failure, unspecified (principal)

== ENCOUNTER 2017-07-22 12:17 | Emergency (ER) | payer OTHER ==
[~2017-07-22] VITALS: Ht 172.7 cm; Wt 86.6 kg
[2017-07-22 12:18] VITALS: BP 148/89
[2017-12-07] MEDS ORDERED: COLACE100 MG PO (09:45)
[2018-03-23] MEDS ORDERED: LEVAQUIN 500 M500 M1 PO (04:31)
[2018-03-23] MEDS ORDERED: GUAIFEN-CODEINE10 ML PO (04:31)
== END 2017-07-22 13:39 | disposition home or self-care (01) ==
LOC: ER 12:17
DX: R06.2 Wheezing (principal); I50.9 Heart failure, unspecified; E11.9 Type 2 diabetes mellitus without complications; I48.91 Unspecified atrial fibrillation; E78.00 Pure hypercholesterolemia, unspecified; I12.9 Hypertensive chronic kidney disease with stage 1 through stage 4 chronic kidney disease, or unspecified chronic kidney disease; N18.3 Chronic kidney disease, stage 3 (moderate); Z87.891 Personal history of nicotine dependence; Z88.8 Allergy status to other drugs, medicaments and biological substances

== ENCOUNTER 2017-07-27 03:10 | Emergency (ER) | payer OTHER ==
[~2017-07-27] VITALS: Ht 172.7 cm; Wt 88.9 kg
[2017-07-27 03:15] VITALS: BP 114/64
[2017-07-27] MEDS ORDERED: ENTRESTO 49 MG1 EACH PO (03:23)
[2017-07-27] MEDS ORDERED: ALDACTONE25 MG PO (03:23)
[2017-07-27] MEDS ORDERED: CARVEDILOL12.5 MG PO (03:23)
[2017-07-27] MEDS ORDERED: LANTUS100 UNIT/M SUBQ (03:24)
[2017-07-27] MEDS ORDERED: DEMADEX20 MG PO ×2 (03:25→03:45)
[2017-07-27] MEDS ORDERED: PACERONE 200 M200 MG PO (03:45)
[2017-07-27] MEDS ORDERED: PANTOPRAZOLE SO40 M1 PO (03:45)
[2017-12-07] MEDS ORDERED: COLACE100 MG PO (09:45)
[2018-03-23] MEDS ORDERED: GUAIFEN-CODEINE10 ML PO (04:31)
[2018-03-23] MEDS ORDERED: LEVAQUIN 500 M500 M1 PO (04:31)
== END 2017-07-27 03:58 | disposition home or self-care (01) ==
LOC: ER 03:10
DX: Z76.0 Encounter for issue of repeat prescription (principal); I13.0 Hypertensive heart and chronic kidney disease with heart failure and stage 1 through stage 4 chronic kidney disease, or unspecified chronic kidney disease; N18.3 Chronic kidney disease, stage 3 (moderate); E11.22 Type 2 diabetes mellitus with diabetic chronic kidney disease; I50.9 Heart failure, unspecified; I48.91 Unspecified atrial fibrillation; E78.00 Pure hypercholesterolemia, unspecified; Z86.73 Personal history of transient ischemic attack (TIA), and cerebral infarction without residual deficits; Z88.8 Allergy status to other drugs, medicaments and biological substances; Z87.891 Personal history of nicotine dependence; Z79.4 Long term (current) use of insulin

== ENCOUNTER → 2017-08-11 | Outpatient (CLI) | payer OTHER ==
[~2017-08-11] MED LIST changes: +ENTRESTO 49 MG1 EACH PO
[2017-08-11 08:16] LABS: CALCIUM 9.6 mg/dL (8.5-10.1); CREATININE 2.6 mg/dL (0.7-1.3); POTASSIUM 4.1 mmol/L (3.5-5.1)
[2017-08-11 08:17] LABS: INR 1.9; PROTIME 18.6 Seconds (9.3-11.4)
[2017-08-11 08:18] VITALS: BP 111/64
== END ==
LOC: CATH 06:43
PROVIDERS: Internal Medicine Cardiovascular Disease
DX: I50.9 Heart failure, unspecified (principal)

== ENCOUNTER → 2017-08-25 | Outpatient (CLI) | payer OTHER ==
[2017-08-25 07:41] LABS: CALCIUM 9.6 mg/dL (8.5-10.1); CREATININE 3.2 mg/dL (0.7-1.3); POTASSIUM 4.5 mmol/L (3.5-5.1)
[2017-08-25 07:47] LABS: PROTIME 25.4 Seconds (9.3-11.4)
[2017-08-25 07:49] LABS: INR 2.5
[2017-08-25 11:40] VITALS: BP 101/56
== END ==
LOC: CATH 07:07
PROVIDERS: Internal Medicine Cardiovascular Disease
DX: I50.9 Heart failure, unspecified (principal)
CPT/HCPCS: 95000; 95001

== ENCOUNTER → 2017-09-01 | Outpatient (CLI) | payer OTHER ==
[2017-09-01 07:40] LABS: HEMATOCRIT 45.1 % (42.0-52.0); HEMOGLOBIN 14.4 gm/dL (14.0-18.0); MCH 23.3 pg (26.0-34.0); MCV 72.8 fL (80.0-100.0); PLATELET COUNT 182 thou/uL (150-400); RDW 17.7 % (10.5-14.5); WBC 6.7 thou/uL (4.0-11.0)
[2017-09-01 07:45] LABS: INR 1.7; PROTIME 17.2 Seconds (9.3-11.4)
[2017-09-01 07:47] LABS: CALCIUM 10.1 mg/dL (8.5-10.1); POTASSIUM 4.9 mmol/L (3.5-5.1)
[2017-09-01 07:49] LABS: POTASSIUM 4.9 mmol/L (3.5-5.1)
[2017-09-01 07:55] LABS: ALBUMIN 3.8 g/dL (3.4-5.0); PHOSPHORUS 3.6 mg/dL (2.5-4.9); TOTAL BILIRUBIN 0.7 mg/dL (<0.1-1.0); TOTAL PROTEIN 7.6 g/dL (6.4-8.2)
[2017-09-01 08:17] LABS: URINE BILIRUBIN NEGATIVE (Negative); URINE BLOOD NEGATIVE (Negative); URINE CLARITY CLEAR; URINE COLOR YELLOW; URINE GLUCOSE-RANDOM* NEGATIVE (Negative); URINE KETONES NEGATIVE (Negative); URINE LEUKOCYTES NEGATIVE (Negative); URINE NITRITE NEGATIVE (Negative); URINE PROTEIN (DIPSTICK) NEGATIVE (Negative); URINE UROBILINOGEN 0.2 E.U./dl (0.2-1.0)
[2017-09-01 08:23] LABS: URINE CREATININE-RANDOM* 26.3 mg/dL
[2017-09-01 08:31] LABS: ABSOLUTE NEUTROPHILS 3.8 thou/uL (1.4-8.2); ANISOCYTOSIS 1+; MICROCYTES 2+; PLATELET ESTIMATE NORMAL; POLYCHROMASIA SLIGHT
[2017-09-01 09:19] VITALS: BP 115/63
== END ==
LOC: CATH 07:04
PROVIDERS: Internal Medicine Cardiovascular Disease
DX: I50.9 Heart failure, unspecified (principal)

== ENCOUNTER → 2017-09-15 | Outpatient (CLI) | payer OTHER ==
[2017-09-15 07:38] VITALS: BP 127/71
[2017-09-15 07:38] LABS: PROTIME 31.1 Seconds (9.3-11.4)
[2017-09-15 07:39] LABS: CALCIUM 9.4 mg/dL (8.5-10.1); CREATININE 2.8 mg/dL (0.7-1.3); POTASSIUM 4.1 mmol/L (3.5-5.1)
[2017-09-15 07:40] LABS: INR 3.1
== END ==
LOC: CATH 06:56
PROVIDERS: Internal Medicine Cardiovascular Disease
DX: I50.9 Heart failure, unspecified (principal)

== ENCOUNTER → 2017-10-06 | Outpatient (CLI) | payer OTHER, SELFPAY ==
[2017-10-06 08:16] VITALS: BP 112/63
[2017-10-06 12:28] LABS: CREATININE 3.5 mg/dL (0.7-1.3); POTASSIUM 4.6 mmol/L (3.5-5.1)
[2017-10-06 12:35] LABS: INR 1.5; PROTIME 15.5 Seconds (9.3-11.4)
== END ==
LOC: CATH 07:02
PROVIDERS: Internal Medicine Cardiovascular Disease
DX: I50.9 Heart failure, unspecified (principal); I25.5 Ischemic cardiomyopathy

== ENCOUNTER → 2017-10-13 | Outpatient (CLI) | payer OTHER, SELFPAY ==
[2017-10-13 07:45] VITALS: BP 115/67
[2017-10-13 07:58] LABS: CALCIUM 9.8 mg/dL (8.5-10.1); CREATININE 3.1 mg/dL (0.7-1.3); POTASSIUM 4.2 mmol/L (3.5-5.1)
[2017-10-13 08:06] LABS: PROTIME 21.4 Seconds (9.3-11.4)
[2017-10-13 08:09] LABS: INR 2.1
== END ==
LOC: CATH 07:10
PROVIDERS: Internal Medicine Cardiovascular Disease
DX: I50.9 Heart failure, unspecified (principal); I25.5 Ischemic cardiomyopathy

== ENCOUNTER → 2017-10-20 | Outpatient (CLI) | payer OTHER ==
[2017-10-20 07:40] VITALS: BP 102/67
[2017-10-20 08:04] LABS: INR 1.7
[2017-10-20 08:06] LABS: PROTIME 17.5 Seconds (9.3-11.4)
[2017-10-20 08:10] LABS: CALCIUM 9.7 mg/dL (8.5-10.1); CREATININE 4.4 mg/dL (0.7-1.3); POTASSIUM 5.2 mmol/L (3.5-5.1)
== END ==
LOC: CATH 09-29 07:39
PROVIDERS: Internal Medicine Cardiovascular Disease
DX: I50.9 Heart failure, unspecified (principal); I25.5 Ischemic cardiomyopathy

== ENCOUNTER → 2017-10-27 | Outpatient (CLI) | payer OTHER ==
[2017-10-27 09:07] LABS: CALCIUM 9.8 mg/dL (8.5-10.1); CREATININE 3.4 mg/dL (0.7-1.3); POTASSIUM 4.3 mmol/L (3.5-5.1)
[2017-10-27 09:17] LABS: INR 1.9; PROTIME 19.7 Seconds (9.3-11.4)
[2017-10-27 11:49] VITALS: BP 95/57
== END ==
LOC: CATH 07:12
PROVIDERS: Internal Medicine Cardiovascular Disease
DX: I50.9 Heart failure, unspecified (principal); I25.5 Ischemic cardiomyopathy

== ENCOUNTER → 2017-11-03 | Outpatient (CLI) | payer OTHER ==
[2017-11-03 07:57] LABS: CALCIUM 9.3 mg/dL (8.5-10.1); CREATININE 2.8 mg/dL (0.7-1.3); POTASSIUM 4.2 mmol/L (3.5-5.1)
[2017-11-03 07:59] LABS: INR 1.8; PROTIME 18.1 Seconds (9.3-11.4)
[2017-11-03 09:12] VITALS: BP 108/58
== END ==
LOC: CATH 07:16
PROVIDERS: Internal Medicine Cardiovascular Disease
DX: I13.0 Hypertensive heart and chronic kidney disease with heart failure and stage 1 through stage 4 chronic kidney disease, or unspecified chronic kidney disease (principal); N18.4 Chronic kidney disease, stage 4 (severe); I50.9 Heart failure, unspecified; I25.5 Ischemic cardiomyopathy

== ENCOUNTER → 2017-11-10 | Outpatient (CLI) | payer OTHER ==
[2017-11-10 07:27] VITALS: BP 120/74
[2017-11-10 07:48] LABS: CALCIUM 9.5 mg/dL (8.5-10.1); CREATININE 2.6 mg/dL (0.7-1.3); POTASSIUM 3.8 mmol/L (3.5-5.1)
[2017-11-10 07:49] LABS: INR 1.6
[2017-11-10 07:51] LABS: PROTIME 16.5 Seconds (9.3-11.4)
== END ==
LOC: CATH 09-08 11:34
PROVIDERS: Internal Medicine Cardiovascular Disease
DX: I13.0 Hypertensive heart and chronic kidney disease with heart failure and stage 1 through stage 4 chronic kidney disease, or unspecified chronic kidney disease (principal); I25.5 Ischemic cardiomyopathy; I50.9 Heart failure, unspecified; N18.4 Chronic kidney disease, stage 4 (severe)

== ENCOUNTER → 2017-11-24 | Outpatient (CLI) | payer OTHER ==
[2017-11-24 08:44] LABS: CALCIUM 9.2 mg/dL (8.5-10.1); CREATININE 2.5 mg/dL (0.7-1.3); POTASSIUM 4.1 mmol/L (3.5-5.1)
[2017-11-24 08:48] LABS: ALBUMIN 3.4 g/dL (3.4-5.0); PHOSPHORUS 3.3 mg/dL (2.5-4.9)
[2017-11-24 08:52] LABS: PROTIME 19.6 Seconds (9.3-11.4)
[2017-11-24 08:54] LABS: INR 1.9
[2017-11-24 09:59] VITALS: BP 131/72
== END ==
LOC: CATH 06:57
PROVIDERS: Internal Medicine Cardiovascular Disease
DX: I13.0 Hypertensive heart and chronic kidney disease with heart failure and stage 1 through stage 4 chronic kidney disease, or unspecified chronic kidney disease (principal); I25.5 Ischemic cardiomyopathy; I50.9 Heart failure, unspecified; N18.4 Chronic kidney disease, stage 4 (severe)

== ENCOUNTER 2017-12-14 04:27 | Inpatient (IN) | payer OTHER ==
[~2017-12-14] VITALS: Ht 172.7 cm; Wt 88.9 kg
--- NOTE | ~2017-12-14 | HC ---
[facility] [place] [address] [address] CONSULTATION Name: RASHIDA FRY JR Room #: 353-P [facility] IN ..#: [id number] Admission: 12/14/17 Attend Phys: Manuel Soliz MD Discharge: Date of : 43 Report #: [id number] THIS REPORT FOR: //name// CC: Manuel Lizarraga INDICATION: Dyspnea. HISTORY OF PRESENT ILLNESS: This is a 72-year-old gentleman presenting with dizziness, weakness, and orthopnea. He was just hospitalized for a CHF exacerbation last week. He has a history of CABG, ischemic cardiomyopathy, CHF, ICD, paroxysmal atrial fibrillation, CVA, diabetes mellitus, chronic kidney disease and peripheral vascular disease. He receives weekly infusions of milrinone. He reports feeling lightheadedness, but denies any episodes of syncope yesterday. He has noticed increased orthopnea, unable to lay in his usual position. There is no history of chest pains, palpitations, fever or diarrhea. PAST MEDICAL HISTORY: CABG, ischemic cardiomyopathy, multiple admissions for CHF. Ejection fraction in the 15% range. Paroxysmal atrial fibrillation, ICD, CVA, diabetes, chronic kidney disease, right AKA. ALLERGIES: To JACEK INHIBITOR. MEDICATIONS: Include Lipitor 40 mg daily, Coumadin, Protonix, aspirin, Imdur, Coreg 12.5 twice a day, Entresto 49/51 mg b.i.d., Aldactone 25 mg daily, torsemide 40 mg twice a day, and glimepiride. SOCIAL HISTORY: Denies tobacco use. FAMILY HISTORY: Negative for premature CAD. REVIEW OF SYSTEMS: A full 10-point review of systems performed, only the pertinent positives and negatives are described in the HPI. PHYSICAL EXAMINATION: VITAL SIGNS: Blood pressure is 130/70, heart rate is 87 beats per minute. GENERAL APPEARANCE: This is an overweight male, in mild respiratory distress. HEAD AND EYES: Normocephalic. Sclerae are anicteric. ENT: Oral mucosa moist. NECK: Supple. LUNGS: Diminished breath sounds at the bases. CARDIAC: Distant heart sounds, S1, S2 positive. ABDOMEN: Soft, protuberant. EXTREMITIES: Right AKA. Left lower extremity 2+ edema. ECG reveals atrial sensed, ventricular paced rhythm. [facility] [address] [place] [address] CONSULTATION Name: RASHIDA FRY Room #: 353-P [facility] IN ..#: [id number] Admission: 12/14/17 Attend Phys: Manuel Soliz MD Discharge: Date of : 41 Report #: [id number] LABORATORY VALUES: White count is 10, hemoglobin is 12.5. Sodium is 138, creatinine is 2.9. INR is 1.7. ASSESSMENT AND PLAN: 1. Acute on chronic congestive heart failure (mixed type). The patient was just hospitalized for similar complaints last week. It may be that the current dose of torsemide 40 mg b.i.d. may be ineffective. His kidney disease may be worsening. The plan is to start IV Lasix, may require the addition of Zaroxolyn. 2. Coronary artery disease/coronary artery bypass grafting, stable with no anginal episodes. The troponin level is negative. 3. Paroxysmal atrial fibrillation, continue with warfarin, keep INR between 2 and 3. 4. ICD, stable with no discharges. 5. Chronic kidney disease, follow creatinine level for now. Known to the nephrology service. 6. Diabetes mellitus, continue with hypoglycemics and check fingersticks. <ELECTRONICALLY SIGNED> By: Mohan Kilpatrick MD 12/15/17 0850 0905 1443 Mohan Kilpatrick MD /nt
--- NOTE | ~2017-12-14 | EKG ---
[address] [facility] [address] ELECTROCARDIOGRAM REPORT Name: RASHIDA FRY Room #: 170-1 ADM IN ..#: [id number] Admission: 12/14/17 Attend Phys: Manuel Soliz MD Discharge: Date of : 41 Report #: [id number] THIS REPORT FOR: //name// [facility] ED Test Date: 2017-12-14 Test Time: 04:36:39 Pat Name: RASHIDA FRY Department: Room: Gender: M Wash Rack Operator: RUBI : 1945 Requested By: Kenny Fermin Order Number: [id number] MD: Jai Cox Measurements Intervals [place] Rate: 87 P: 80 [place]: 139 QRS: 247 QRSD: 192 T: 82 QT: 443 QTc: 533 Interpretive Statements Atrial-sensed ventricular-paced complexes No further analysis attempted due to paced rhythm Compared to ECG 12/07/2017 08:22:29 No significant changes Electronically Signed On 12-14-2017 8:31:10 CDT by Jai Cox [email or web address] <ELECTRONICALLY SIGNED> By: Jai Cox MD, [facility] 12/14/17 0831 0436 0436 Jai Cox MD, [facility] /EPI
[2017-12-14 04:28] VITALS: BP 124/74
[2017-12-14 05:24] LABS: ABSOLUTE NEUTROPHILS 7.4 thou/uL (1.4-8.2); BASOPHILS 0.3 % (0.0-2.0); EOSINOPHILS 0.8 % (0.0-3.0); HEMATOCRIT 39.2 % (42.0-52.0); HEMOGLOBIN 12.5 gm/dL (14.0-18.0); MCH 23.7 pg (26.0-34.0); MCV 74.1 fL (80.0-100.0); MONOCYTES 11.7 % (1.0-8.0); PLATELET COUNT 181 thou/uL (150-400); POLYS 74.2 % (36.0-66.0); RBC 5.29 mil/uL (4.50-6.00); RDW 18.5 % (10.5-14.5)
[2017-12-14 05:36] LABS: CALCIUM 9.5 mg/dL (8.5-10.1); CREATININE 2.9 mg/dL (0.7-1.3); POTASSIUM 4.4 mmol/L (3.5-5.1)
[2017-12-14 05:39] LABS: APTT 31.7 Seconds (24.5-32.8); INR 1.7
[2017-12-14 05:43] LABS: ALBUMIN 3.6 g/dL (3.4-5.0); MAGNESIUM 2.9 mg/dL (1.8-2.4); TOTAL BILIRUBIN 1.4 mg/dL (<0.1-1.0); TOTAL PROTEIN 7.4 g/dL (6.4-8.2); TROPONIN-I 0.04 ng/mL (<0.06)
[2017-12-14 05:57] LABS: ANISOCYTOSIS 1+; MICROCYTES 2+; PLATELET ESTIMATE NORMAL; POLYCHROMASIA SLIGHT
[2017-12-14 08:03] VITALS: BP 135/85
[2017-12-14 17:17] VITALS: BP 125/77
[2017-12-14 19:26] VITALS: BP 117/63
[2017-12-15] VITALS: BP 127/81
[2017-12-15 04:54] VITALS: BP 134/78
[2017-12-15 06:25] LABS: ABSOLUTE NEUTROPHILS 12.4 thou/uL (1.4-8.2); BASOPHILS 0.2 % (0.0-2.0); HEMATOCRIT 40.5 % (42.0-52.0); HEMOGLOBIN 12.7 gm/dL (14.0-18.0); LYMPHOCYTES 5.9 % (24.0-44.0); MCH 23.2 pg (26.0-34.0); MCHC 31.5 g/dL (28.0-37.0); MCV 73.8 fL (80.0-100.0); MONOCYTES 8.7 % (1.0-8.0); PLATELET COUNT 189 thou/uL (150-400); POLYS 85.2 % (36.0-66.0); RBC 5.48 mil/uL (4.50-6.00); RDW 18.5 % (10.5-14.5); WBC 14.5 thou/uL (4.0-11.0)
[2017-12-15 06:32] LABS: INR 2.1; PROTIME 21.1 Seconds (9.3-11.4)
[2017-12-15 06:36] LABS: CALCIUM 9.8 mg/dL (8.5-10.1); CREATININE 2.7 mg/dL (0.7-1.3); MAGNESIUM 2.8 mg/dL (1.8-2.4); POTASSIUM 5.1 mmol/L (3.5-5.1)
[2017-12-15 07:29] VITALS: BP 135/90
[2017-12-15 07:35] LABS: ANISOCYTOSIS 1+; HYPOCHROMASIA 1+; MICROCYTES 1+
[2017-12-15 11:57] VITALS: BP 135/84
[2017-12-15 15:35] VITALS: BP 103/54
[2017-12-15 19:20] VITALS: BP 107/64
[2017-12-16 03:28] VITALS: BP 114/68
[2017-12-16 05:15] LABS: HEMATOCRIT 38.7 % (42.0-52.0); HEMOGLOBIN 12.1 gm/dL (14.0-18.0); MCH 23.2 pg (26.0-34.0); MCHC 31.2 g/dL (28.0-37.0); MCV 74.6 fL (80.0-100.0); RBC 5.19 mil/uL (4.50-6.00); RDW 18.4 % (10.5-14.5); WBC 13.1 thou/uL (4.0-11.0)
[2017-12-16 05:23] LABS: CALCIUM 9.4 mg/dL (8.5-10.1); CREATININE 2.9 mg/dL (0.7-1.3)
[2017-12-16 06:46] LABS: INR 2.5; PROTIME 25.1 Seconds (9.3-11.4)
[2017-12-16 07:34] VITALS: BP 116/70
[2017-12-16 12:25] VITALS: BP 111/67
[2017-12-16] MEDS ORDERED: POTASSIUM20 PO (15:36)
[2017-12-16] MEDS ORDERED: FLOMAX0.4 MG PO (15:36)
[2017-12-16] MEDS ORDERED: ALDACTONE25 MG PO (15:44)
[2017-12-16 15:56] VITALS: BP 111/67
[2017-12-16 16:12] VITALS: BP 111/67
== END 2017-12-16 16:45 | disposition home or self-care (01) | DRG 682 ==
LOC: ER 04:27 → EROBS 07:44 → 3W 07:44 → ENTRNSPT 12-16 16:21 → 3W 12-16 16:45
PROVIDERS: Emergency Medicine; Hospitalist; Nurse Practitioner; Nurse Practitioner Acute Care
PROC: 5A09357 Assistance with Respiratory Ventilation, Less than 24 Consecutive Hours, Continuous Positive Airway Pressure (ICD-10-PCS; principal; 2017-12-14)
DX: N17.9 Acute kidney failure, unspecified (principal); J96.21 Acute and chronic respiratory failure with hypoxia; I50.43 Acute on chronic combined systolic (congestive) and diastolic (congestive) heart failure; I13.0 Hypertensive heart and chronic kidney disease with heart failure and stage 1 through stage 4 chronic kidney disease, or unspecified chronic kidney disease; Z79.4 Long term (current) use of insulin; E78.00 Pure hypercholesterolemia, unspecified; I25.5 Ischemic cardiomyopathy; I48.0 Paroxysmal atrial fibrillation; I25.10 Atherosclerotic heart disease of native coronary artery without angina pectoris; E11.22 Type 2 diabetes mellitus with diabetic chronic kidney disease; E11.649 Type 2 diabetes mellitus with hypoglycemia without coma; I27.20 Pulmonary hypertension, unspecified; K59.09 Other constipation; E78.5 Hyperlipidemia, unspecified; R33.9 Retention of urine, unspecified; Z60.2 Problems related to living alone; N18.4 Chronic kidney disease, stage 4 (severe); E86.0 Dehydration; Z95.0 Presence of cardiac pacemaker; Z95.1 Presence of aortocoronary bypass graft; Z86.73 Personal history of transient ischemic attack (TIA), and cerebral infarction without residual deficits; Z89.611 Acquired absence of right leg above knee; Z88.8 Allergy status to other drugs, medicaments and biological substances; Z87.891 Personal history of nicotine dependence; Z79.01 Long term (current) use of anticoagulants; Z79.82 Long term (current) use of aspirin; Z79.899 Other long term (current) drug therapy
CPT/HCPCS: 10879

== ENCOUNTER → 2017-12-22 | Outpatient (CLI) | payer OTHER ==
[~2017-12-22] MED LIST changes: +FLOMAX0.4 MG PO; +METOLAZONE 2.52.5 MG PO; +NEURONTIN 300300 M1 PO
[2017-12-22 07:53] VITALS: BP 136/66
[2017-12-22 08:02] LABS: CALCIUM 9.5 mg/dL (8.5-10.1); CREATININE 2.5 mg/dL (0.7-1.3); POTASSIUM 4.2 mmol/L (3.5-5.1)
[2017-12-22 08:25] LABS: INR 2.1
[2017-12-22 08:27] LABS: PROTIME 20.6 Seconds (9.3-11.4)
== END ==
LOC: CATH 06:53
PROVIDERS: Internal Medicine Cardiovascular Disease
DX: I50.9 Heart failure, unspecified (principal)

== ENCOUNTER → 2017-12-29 | Outpatient (CLI) | payer OTHER ==
[2017-12-29 07:33] LABS: CALCIUM 9.5 mg/dL (8.5-10.1); CREATININE 2.6 mg/dL (0.7-1.3); POTASSIUM 4.1 mmol/L (3.5-5.1)
[2017-12-29 07:39] LABS: ALBUMIN 3.3 g/dL (3.4-5.0); PHOSPHORUS 3.4 mg/dL (2.5-4.9); TOTAL BILIRUBIN 1.4 mg/dL (<0.1-1.0); TOTAL PROTEIN 7.3 g/dL (6.4-8.2)
[2017-12-29 07:42] LABS: INR 2.5; PROTIME 25.1 Seconds (9.3-11.4)
[2017-12-29 11:57] VITALS: BP 130/73
== END ==
LOC: CATH 06:50
PROVIDERS: Internal Medicine Cardiovascular Disease
DX: I50.9 Heart failure, unspecified (principal)

== ENCOUNTER → 2018-01-05 | Outpatient (CLI) | payer OTHER ==
[2018-01-05 07:38] LABS: CALCIUM 9.3 mg/dL (8.5-10.1); CREATININE 2.5 mg/dL (0.7-1.3); POTASSIUM 4.4 mmol/L (3.5-5.1)
[2018-01-05 07:43] LABS: INR 1.8; PROTIME 18.7 Seconds (9.3-11.4)
[2018-01-05 08:02] VITALS: BP 104/60
== END ==
LOC: CATH 07:01
PROVIDERS: Internal Medicine Cardiovascular Disease
DX: I50.9 Heart failure, unspecified (principal)

== ENCOUNTER → 2018-01-12 | Outpatient (CLI) | payer OTHER ==
[~2018-01-12] MED LIST changes: -METOLAZONE 2.52.5 MG PO; -NEURONTIN 300300 M1 PO
== END ==
LOC: HYPER 06:50
DX: E11.622 Type 2 diabetes mellitus with other skin ulcer (principal); I87.332 Chronic venous hypertension (idiopathic) with ulcer and inflammation of left lower extremity; L97.822 Non-pressure chronic ulcer of other part of left lower leg with fat layer exposed; E11.51 Type 2 diabetes mellitus with diabetic peripheral angiopathy without gangrene; I50.22 Chronic systolic (congestive) heart failure; I48.2 Chronic atrial fibrillation; E11.40 Type 2 diabetes mellitus with diabetic neuropathy, unspecified; Z79.4 Long term (current) use of insulin; Z79.84 Long term (current) use of oral hypoglycemic drugs; Z86.73 Personal history of transient ischemic attack (TIA), and cerebral infarction without residual deficits; Z87.891 Personal history of nicotine dependence

== ENCOUNTER 2018-01-16 19:40 | Emergency (ER) | payer OTHER ==
[~2018-01-16] VITALS: Ht 172.7 cm; Wt 88.9 kg
[2018-01-16 19:50] VITALS: BP 99/54
[2018-01-16] MEDS ORDERED: NEURONTIN 300300 M1 PO (20:15)
== END 2018-01-16 20:37 | disposition home or self-care (01) ==
LOC: ER 19:40
DX: M79.604 Pain in right leg (principal); I11.0 Hypertensive heart disease with heart failure; I50.9 Heart failure, unspecified; I48.91 Unspecified atrial fibrillation; E78.00 Pure hypercholesterolemia, unspecified; Z95.1 Presence of aortocoronary bypass graft; I12.9 Hypertensive chronic kidney disease with stage 1 through stage 4 chronic kidney disease, or unspecified chronic kidney disease; E11.22 Type 2 diabetes mellitus with diabetic chronic kidney disease; N18.3 Chronic kidney disease, stage 3 (moderate); Z88.8 Allergy status to other drugs, medicaments and biological substances

== ENCOUNTER → 2018-01-19 | Outpatient (CLI) | payer OTHER ==
[~2018-01-19] MED LIST changes: +METOLAZONE 2.52.5 MG PO; +NEURONTIN 300300 M1 PO
[2018-01-19 09:07] LABS: CALCIUM 9.1 mg/dL (8.5-10.1); CREATININE 2.9 mg/dL (0.7-1.3); POTASSIUM 5.3 mmol/L (3.5-5.1)
[2018-01-19 09:08] LABS: PROTIME 23.5 Seconds (9.3-11.4)
[2018-01-19 09:09] LABS: INR 2.3
[2018-01-19 14:27] VITALS: BP 107/62
== END ==
LOC: CATH 08:11
PROVIDERS: Internal Medicine Cardiovascular Disease
DX: I50.9 Heart failure, unspecified (principal)

== ENCOUNTER → 2018-01-26 | Outpatient (CLI) | payer OTHER ==
[~2018-01-26] MED LIST changes: -METOLAZONE 2.52.5 MG PO
[2018-01-26 08:15] LABS: INR 1.4; PROTIME 13.7 Seconds (9.3-11.4)
[2018-01-26 08:21] VITALS: BP 108/46
[2018-01-26 08:23] LABS: CALCIUM 9.5 mg/dL (8.5-10.1); CREATININE 2.5 mg/dL (0.7-1.3); POTASSIUM 4.6 mmol/L (3.5-5.1)
== END ==
LOC: HYPER 07:13
PROVIDERS: Internal Medicine Cardiovascular Disease
DX: I87.332 Chronic venous hypertension (idiopathic) with ulcer and inflammation of left lower extremity (principal); L97.822 Non-pressure chronic ulcer of other part of left lower leg with fat layer exposed; L97.321 Non-pressure chronic ulcer of left ankle limited to breakdown of skin; E11.51 Type 2 diabetes mellitus with diabetic peripheral angiopathy without gangrene; E11.40 Type 2 diabetes mellitus with diabetic neuropathy, unspecified; I50.22 Chronic systolic (congestive) heart failure; I48.2 Chronic atrial fibrillation; Z79.4 Long term (current) use of insulin; Z79.84 Long term (current) use of oral hypoglycemic drugs; Z86.73 Personal history of transient ischemic attack (TIA), and cerebral infarction without residual deficits; Z95.0 Presence of cardiac pacemaker; Z87.891 Personal history of nicotine dependence

== ENCOUNTER → 2018-02-02 | Outpatient (CLI) | payer OTHER ==
[~2018-02-02] MED LIST changes: +METOLAZONE 2.52.5 MG PO
[2018-02-02 08:14] VITALS: BP 107/65
[2018-02-02 09:03] LABS: INR 1.4; PROTIME 13.9 Seconds (9.3-11.4)
[2018-02-02 09:07] LABS: CALCIUM 9.1 mg/dL (8.5-10.1); CREATININE 2.8 mg/dL (0.7-1.3); POTASSIUM 4.5 mmol/L (3.5-5.1)
== END ==
LOC: CATH 07:19
PROVIDERS: Internal Medicine Cardiovascular Disease
DX: I50.9 Heart failure, unspecified (principal)

== ENCOUNTER → 2018-02-09 | Outpatient (CLI) | payer OTHER ==
[2018-02-09 07:59] LABS: CALCIUM 9.4 mg/dL (8.5-10.1); CREATININE 2.7 mg/dL (0.7-1.3); POTASSIUM 4.4 mmol/L (3.5-5.1)
[2018-02-09 08:06] LABS: INR 1.7; PROTIME 17.4 Seconds (9.3-11.4)
[2018-02-09 09:14] VITALS: BP 107/60
== END ==
LOC: CATH 06:55
PROVIDERS: Internal Medicine Cardiovascular Disease
DX: I50.9 Heart failure, unspecified (principal)

== ENCOUNTER 2018-02-11 00:13 | Inpatient (IN) | payer OTHER ==
[~2018-02-11] VITALS: Ht 172.7 cm; Wt 96.7 kg
[2018-02-11] VITALS (9 sets, daily range): BP systolic 114–144; BP diastolic 58–92
--- NOTE | ~2018-02-11 | EKG ---
[address] [address] [address] [employer] [place] [address] ELECTROCARDIOGRAM REPORT Name: ROME FRYLIDell Sharpe Room #: 358-P ADM IN M.R.#: [id number] Admission: 02/11/18 Attend Phys: Rachael Hyde Discharge: Date of : 41 Report #: [id number] THIS REPORT FOR: //name// [facility] ED Test Date: 2018-02-11 Test Time: 00:16:40 Pat Name: RASHIDA FRY Department: Room: [facility] Gender: M Glycerin Supervisor: JLPAULETTE : 1945 Requested By: Jesus Hernandez Order Number: [id number] MD: Jai Cox Measurements Intervals [place] Rate: 97 P: 74 [place]: 154 QRS: 229 QRSD: 169 T: 70 QT: 397 QTc: 505 Interpretive Statements Atrial-sensed ventricular-paced complexes No further analysis attempted due to paced rhythm Compared to ECG 12/14/2017 04:36:39 No significant changes Electronically Signed On 02-11-2018 10:56:36 CDT by Jai Cox [email or web address] <ELECTRONICALLY SIGNED> By: Jai Cox MD, [facility] 02/11/18 1056 0016 0016 Jai Cox MD, [facility] /EPI
[~2018-02-11 00:13] MED LIST changes: -METOLAZONE 2.52.5 MG PO
[2018-02-11 00:36] LABS: ABSOLUTE NEUTROPHILS 4.5 thou/uL (1.4-8.2); BASOPHILS 1.5 % (0.0-2.0); EOSINOPHILS 1.5 % (0.0-3.0); HEMATOCRIT 36.6 % (42.0-52.0); HEMOGLOBIN 11.5 gm/dL (14.0-18.0); LYMPHOCYTES 19.1 % (24.0-44.0); MCH 22.6 pg (26.0-34.0); MCHC 31.5 g/dL (28.0-37.0); MCV 71.8 fL (80.0-100.0); MONOCYTES 11.6 % (1.0-8.0); PLATELET COUNT 192 thou/uL (150-400); POLYS 66.3 % (36.0-66.0); RDW 18.9 % (10.5-14.5); WBC 6.7 thou/uL (4.0-11.0)
[2018-02-11 00:46] LABS: ANION GAP 8 mmol/L (7-16); BUN 60 mg/dL (7-18); CALCIUM 9.5 mg/dL (8.5-10.1); CHLORIDE 103 mmol/L (98-107); CO2 29 mmol/L (21-32); CREATININE 2.7 mg/dL (0.7-1.3); GLUCOSE 241 mg/dL (74-106); POTASSIUM 4.8 mmol/L (3.5-5.1); SODIUM 140 mmol/L (136-145)
[2018-02-11 00:51] LABS: BE(vivo) 2.7 mmol/L (-2 to +3); PCO2 45.7 mmHg (35.0-45.0); pH 7.405 (7.360-7.450); sO2 96.2 % (92.0-98.0)
[2018-02-11 00:54] LABS: ALBUMIN 3.4 g/dL (3.4-5.0); SGOT 23 U/L (15-37); SGPT 23 U/L (30-65); TOTAL PROTEIN 7.6 g/dL (6.4-8.2); TROPONIN-I <0.06 ng/mL (<0.06)
[2018-02-11 02:40] LABS: ANISOCYTOSIS 2+; HYPOCHROMASIA 2+
[2018-02-11 02:41] LABS: MICROCYTES 1+; OVALOCYTES OCCASIONAL; POLYCHROMASIA 1+
[2018-02-11 04:21] LABS: PROTIME 27.4 Seconds (9.3-11.4)
[2018-02-11 04:34] LABS: INR 2.7
[2018-02-11 09:53] LABS: URINE BILIRUBIN NEGATIVE (Negative); URINE BLOOD 2+ (Negative); URINE CLARITY CLEAR; URINE COLOR YELLOW; URINE GLUCOSE-RANDOM* NEGATIVE (Negative); URINE KETONES NEGATIVE (Negative); URINE NITRITE-REFLEX NEGATIVE (Negative); URINE PROTEIN (DIPSTICK) NEGATIVE (Negative); URINE UROBILINOGEN 0.2 E.U./dl (0.2-1.0)
[2018-02-11 10:11] LABS: URINE LEUKOCYTES-REFLEX TRACE (Negative)
[2018-02-11 11:13] LABS: BACTERIA-REFLEX 1-9 Few /HPF (None Seen); CASTS None Seen /LPF (None Seen); CRYSTALS None Seen /LPF (None Seen); SQUAMOUS None Seen /LPF (0-3); URINE WBC-REFLEX 6-15 Few /HPF (0-5)
[2018-02-12 00:15] VITALS: BP 119/58
[2018-02-12 04:21] VITALS: BP 119/73
[2018-02-12 06:12] LABS: ALBUMIN 3.1 g/dL (3.4-5.0); CALCIUM 9.5 mg/dL (8.5-10.1); CREATININE 2.8 mg/dL (0.7-1.3); MAGNESIUM 2.7 mg/dL (1.8-2.4); PHOSPHORUS 3.3 mg/dL (2.5-4.9); POTASSIUM 4.5 mmol/L (3.5-5.1)
[2018-02-12 07:05] VITALS: BP 122/75
[2018-02-12 12:16] VITALS: BP 124/78
[2018-02-12 19:40] VITALS: BP 103/51
[2018-02-13 03:50] VITALS: BP 113/74
[2018-02-13 07:49] VITALS: BP 131/81
[2018-02-13 08:14] LABS: ALBUMIN 3.3 g/dL (3.4-5.0); CALCIUM 9.6 mg/dL (8.5-10.1); CREATININE 2.9 mg/dL (0.7-1.3); PHOSPHORUS 3.8 mg/dL (2.5-4.9); POTASSIUM 4.1 mmol/L (3.5-5.1)
[2018-02-13] MEDS ORDERED: METOLAZONE 2.52.5 MG PO (08:46)
[2018-02-13 11:22] VITALS: BP 134/94
[2018-02-13 16:28] VITALS: BP 134/94
[2018-02-13 16:33] VITALS: BP 134/94
== END 2018-02-13 17:01 | disposition home or self-care (01) | DRG 177 ==
LOC: ER 00:13 → 3W 01:08 → EROBS 01:08 → 3W 01:30 → ENTRNSPT 02-13 16:34 → 3W 02-13 17:01
PROVIDERS: Emergency Medicine; Hospitalist; Nurse Practitioner Acute Care
PROC: 5A09357 Assistance with Respiratory Ventilation, Less than 24 Consecutive Hours, Continuous Positive Airway Pressure (ICD-10-PCS; principal; 2018-02-11)
DX: J15.6 Pneumonia due to other Gram-negative bacteria (principal); I50.43 Acute on chronic combined systolic (congestive) and diastolic (congestive) heart failure; J96.21 Acute and chronic respiratory failure with hypoxia; J44.1 Chronic obstructive pulmonary disease with (acute) exacerbation; I13.0 Hypertensive heart and chronic kidney disease with heart failure and stage 1 through stage 4 chronic kidney disease, or unspecified chronic kidney disease; E11.22 Type 2 diabetes mellitus with diabetic chronic kidney disease; E78.00 Pure hypercholesterolemia, unspecified; I25.10 Atherosclerotic heart disease of native coronary artery without angina pectoris; N18.3 Chronic kidney disease, stage 3 (moderate); I25.5 Ischemic cardiomyopathy; I48.2 Chronic atrial fibrillation; Z79.4 Long term (current) use of insulin; Z95.0 Presence of cardiac pacemaker; Z95.1 Presence of aortocoronary bypass graft; I25.2 Old myocardial infarction; Z86.73 Personal history of transient ischemic attack (TIA), and cerebral infarction without residual deficits; Z89.611 Acquired absence of right leg above knee; Z88.8 Allergy status to other drugs, medicaments and biological substances; Z87.891 Personal history of nicotine dependence; Z79.82 Long term (current) use of aspirin; Z79.899 Other long term (current) drug therapy
CPT/HCPCS: 10779

== ENCOUNTER → 2018-02-16 | Outpatient (CLI) | payer OTHER ==
[~2018-02-16] MED LIST changes: +GUAIFEN-CODEINE10 ML PO; +LEVAQUIN 500 M500 M1 PO; +METOLAZONE 2.52.5 MG PO
[2018-02-16 07:46] VITALS: BP 113/62
[2018-02-16 07:53] LABS: HEMOGLOBIN 10.9 gm/dL (14.0-18.0); MCH 22.2 pg (26.0-34.0); MCHC 31.1 g/dL (28.0-37.0); MCV 71.3 fL (80.0-100.0); RBC 4.92 mil/uL (4.50-6.00); RDW 18.8 % (10.5-14.5); WBC 8.5 thou/uL (4.0-11.0)
[2018-02-16 08:08] LABS: CALCIUM 9.5 mg/dL (8.5-10.1); CREATININE 3.2 mg/dL (0.7-1.3); POTASSIUM 4.1 mmol/L (3.5-5.1)
[2018-02-16 08:16] LABS: INR 2.1; PROTIME 21.4 Seconds (9.3-11.4)
== END ==
LOC: HYPER 06:42
PROVIDERS: Internal Medicine Cardiovascular Disease
DX: E11.622 Type 2 diabetes mellitus with other skin ulcer (principal); I87.332 Chronic venous hypertension (idiopathic) with ulcer and inflammation of left lower extremity; L97.821 Non-pressure chronic ulcer of other part of left lower leg limited to breakdown of skin; L97.321 Non-pressure chronic ulcer of left ankle limited to breakdown of skin; E11.51 Type 2 diabetes mellitus with diabetic peripheral angiopathy without gangrene; I48.2 Chronic atrial fibrillation; I50.22 Chronic systolic (congestive) heart failure; Z86.73 Personal history of transient ischemic attack (TIA), and cerebral infarction without residual deficits; Z95.0 Presence of cardiac pacemaker; Z79.4 Long term (current) use of insulin; Z79.84 Long term (current) use of oral hypoglycemic drugs; Z87.891 Personal history of nicotine dependence

== ENCOUNTER → 2018-02-23 | Outpatient (CLI) | payer OTHER ==
[2018-02-23 07:35] LABS: CALCIUM 9.2 mg/dL (8.5-10.1); CREATININE 2.9 mg/dL (0.7-1.3); POTASSIUM 3.7 mmol/L (3.5-5.1)
[2018-02-23 07:36] LABS: INR 1.2; PROTIME 12.5 Seconds (9.3-11.4)
[2018-02-23 08:21] VITALS: BP 102/68
== END | disposition home or self-care (01) ==
LOC: CATH 06:40
PROVIDERS: Internal Medicine Cardiovascular Disease
DX: I50.9 Heart failure, unspecified (principal)

== ENCOUNTER → 2018-03-02 | Outpatient (CLI) | payer OTHER ==
[2018-03-02 08:24] VITALS: BP 107/58
[2018-03-02 08:49] LABS: CALCIUM 9.5 mg/dL (8.5-10.1); CREATININE 3.2 mg/dL (0.7-1.3); POTASSIUM 3.9 mmol/L (3.5-5.1)
[2018-03-02 08:55] LABS: INR 1.5; PROTIME 14.8 Seconds (9.3-11.4)
== END ==
LOC: HYPER 06:58
PROVIDERS: Internal Medicine Cardiovascular Disease
DX: I87.332 Chronic venous hypertension (idiopathic) with ulcer and inflammation of left lower extremity (principal); I50.22 Chronic systolic (congestive) heart failure; I73.9 Peripheral vascular disease, unspecified; I48.2 Chronic atrial fibrillation; E11.40 Type 2 diabetes mellitus with diabetic neuropathy, unspecified; Z79.4 Long term (current) use of insulin; Z79.84 Long term (current) use of oral hypoglycemic drugs

== ENCOUNTER → 2018-03-23 | Outpatient (CLI) | payer OTHER ==
[2018-03-23 07:34] LABS: CALCIUM 9.8 mg/dL (8.5-10.1); CREATININE 2.8 mg/dL (0.7-1.3); POTASSIUM 4.1 mmol/L (3.5-5.1)
[2018-03-23 07:35] LABS: INR 2.2; PROTIME 22.7 Seconds (9.3-11.4)
[2018-03-23 13:55] VITALS: BP 128/72
== END ==
LOC: HYPER 03:10
PROVIDERS: Internal Medicine Cardiovascular Disease
DX: I87.332 Chronic venous hypertension (idiopathic) with ulcer and inflammation of left lower extremity (principal); I50.22 Chronic systolic (congestive) heart failure; I73.9 Peripheral vascular disease, unspecified; I48.2 Chronic atrial fibrillation; E11.40 Type 2 diabetes mellitus with diabetic neuropathy, unspecified; Z79.4 Long term (current) use of insulin; Z79.84 Long term (current) use of oral hypoglycemic drugs

== ENCOUNTER → 2018-03-30 | Outpatient (CLI) | payer OTHER ==
[~2018-03-30] MED LIST changes: +ACETAMINOPHEN325 M1 PO; +CEFUROXIME250 MG PO; +CEPACOL SORE T1 EAC7 PO; +CODEINE SULFATE30 MG PO; +DEEP SEA NASAL44 M1 NASAL; +GUAIFENESIN DM S5 ML PO; +IPRAT-ALBUT 0.5-3 ML INH; +NEBULIZER MISCELL; +PREDNISONE 20 M20 M1 PO
[2018-03-30 07:55] LABS: CALCIUM 9.8 mg/dL (8.5-10.1); CREATININE 2.5 mg/dL (0.7-1.3); POTASSIUM 4.2 mmol/L (3.5-5.1)
[2018-03-30 07:57] LABS: INR 1.4; PROTIME 14.7 Seconds (9.3-11.4)
[2018-03-30 08:04] VITALS: BP 124/70
== END ==
LOC: CATH 06:54
PROVIDERS: Internal Medicine Cardiovascular Disease
DX: I50.9 Heart failure, unspecified (principal)

== ENCOUNTER → 2018-04-13 | Outpatient (CLI) | payer OTHER ==
[~2018-04-13] MED LIST changes: -ACETAMINOPHEN325 M1 PO; -CEFUROXIME250 MG PO; -CEPACOL SORE T1 EAC7 PO; -CODEINE SULFATE30 MG PO; -DEEP SEA NASAL44 M1 NASAL; -GUAIFENESIN DM S5 ML PO; -IPRAT-ALBUT 0.5-3 ML INH; -NEBULIZER MISCELL; -PREDNISONE 20 M20 M1 PO
[2018-04-13 08:43] VITALS: BP 126/74
[2018-04-13 09:14] LABS: CALCIUM 9.9 mg/dL (8.5-10.1); CREATININE 2.7 mg/dL (0.7-1.3)
[2018-04-13 09:19] LABS: INR 1.1; PROTIME 11.7 Seconds (9.3-11.4)
== END ==
LOC: CATH 03-09 03:10
PROVIDERS: Internal Medicine Cardiovascular Disease
DX: I50.22 Chronic systolic (congestive) heart failure (principal)

== ENCOUNTER → 2018-04-20 | Outpatient (CLI) | payer OTHER ==
[2018-04-20 07:24] LABS: CALCIUM 9.8 mg/dL (8.5-10.1); CREATININE 3.1 mg/dL (0.7-1.3); POTASSIUM 4.3 mmol/L (3.5-5.1)
[2018-04-20 07:27] LABS: INR 1.4; PROTIME 13.9 Seconds (9.3-11.4)
[2018-04-20 07:58] VITALS: BP 115/58
== END ==
LOC: CATH 06:48
PROVIDERS: Internal Medicine Cardiovascular Disease
DX: I50.22 Chronic systolic (congestive) heart failure (principal)

== ENCOUNTER → 2018-04-27 | Outpatient (CLI) | payer OTHER ==
[2018-04-27 07:58] LABS: CALCIUM 10.1 mg/dL (8.5-10.1); POTASSIUM 4.6 mmol/L (3.5-5.1)
[2018-04-27 08:06] LABS: INR 1.5; PROTIME 14.7 Seconds (9.3-11.4)
[2018-04-27 14:03] VITALS: BP 110/81
== END ==
LOC: CATH 06:31
PROVIDERS: Internal Medicine Cardiovascular Disease
DX: I50.22 Chronic systolic (congestive) heart failure (principal)

== ENCOUNTER → 2018-05-11 | Outpatient (CLI) | payer OTHER ==
[2018-05-11 08:13] LABS: POTASSIUM 4.5 mmol/L (3.5-5.1)
[2018-05-11 08:23] LABS: INR 1.4; PROTIME 14.4 Seconds (9.3-11.4)
[2018-05-11 12:55] VITALS: BP 117/69
== END ==
LOC: CATH 05-04 13:25
PROVIDERS: Internal Medicine Cardiovascular Disease
DX: I50.22 Chronic systolic (congestive) heart failure (principal)

== ENCOUNTER 2018-05-22 07:15 | Emergency (ER) | payer OTHER ==
[~2018-05-22] VITALS: Ht 172.7 cm; Wt 86.6 kg
[2018-05-22 09:03] LABS: ABSOLUTE NEUTROPHILS 5.6 thou/uL (1.4-8.2); BASOPHILS 0.9 % (0.0-2.0); EOSINOPHILS 2.6 % (0.0-3.0); HEMATOCRIT 37.4 % (42.0-52.0); HEMOGLOBIN 12.1 gm/dL (14.0-18.0); LYMPHOCYTES 13.1 % (24.0-44.0); MCH 21.8 pg (26.0-34.0); MCHC 32.2 g/dL (28.0-37.0); MCV 67.5 fL (80.0-100.0); MONOCYTES 11.9 % (1.0-8.0); PLATELET COUNT 154 thou/uL (150-400); POLYS 71.5 % (36.0-66.0); RBC 5.54 mil/uL (4.50-6.00); RDW 20.5 % (10.5-14.5); WBC 7.8 thou/uL (4.0-11.0)
[2018-05-22 09:11] LABS: CREATININE 2.7 mg/dL (0.7-1.3)
[2018-05-22 09:13] LABS: INR 1.4; PROTIME 14.5 Seconds (9.3-11.4)
[2018-05-22 09:33] LABS: URINE BILIRUBIN NEGATIVE (Negative); URINE BLOOD NEGATIVE (Negative); URINE CLARITY CLEAR; URINE COLOR YELLOW; URINE GLUCOSE-RANDOM* NEGATIVE (Negative); URINE KETONES NEGATIVE (Negative); URINE LEUKOCYTES NEGATIVE (Negative); URINE NITRITE NEGATIVE (Negative); URINE PROTEIN (DIPSTICK) NEGATIVE (Negative); URINE UROBILINOGEN 0.2 E.U./dl (0.2-1.0)
[2018-05-22 09:33] LABS: ANISOCYTOSIS 2+; MICROCYTES 2+
[2018-05-22 09:34] LABS: HYPOCHROMASIA 2+
[2018-05-22] MEDS ORDERED: FLOMAX0.4 MG PO (09:56)
[2018-05-22 10:09] VITALS: BP 100/52
== END 2018-05-22 10:10 | disposition home or self-care (01) ==
LOC: ER 07:15
PROVIDERS: Student in an Organized Health Care Education/Training Program
DX: R33.9 Retention of urine, unspecified (principal); N40.1 Benign prostatic hyperplasia with lower urinary tract symptoms; R79.1 Abnormal coagulation profile; I48.91 Unspecified atrial fibrillation; E78.00 Pure hypercholesterolemia, unspecified; I12.9 Hypertensive chronic kidney disease with stage 1 through stage 4 chronic kidney disease, or unspecified chronic kidney disease; N18.3 Chronic kidney disease, stage 3 (moderate); Z86.73 Personal history of transient ischemic attack (TIA), and cerebral infarction without residual deficits; Z87.891 Personal history of nicotine dependence; Z95.0 Presence of cardiac pacemaker; Z88.8 Allergy status to other drugs, medicaments and biological substances; E11.22 Type 2 diabetes mellitus with diabetic chronic kidney disease

== ENCOUNTER 2018-05-23 21:24 | Inpatient (IN) | payer OTHER ==
[~2018-05-23] VITALS: Ht 172.7 cm; Wt 91.6 kg
--- NOTE | ~2018-05-23 | EKG ---
[address] [place] [address] ELECTROCARDIOGRAM REPORT Name: RASHIDA FRY Room #: 210-P ADM IN M.R.#: [id number] Admission: 05/23/18 Attend Phys: Robert Morgan MD Discharge: Date of : 41 Report #: [id number] THIS REPORT FOR: //name// [facility] ED Test Date: 2018-05-23 Test Time: 22:22:41 Pat Name: RASHIDA FRY Department: Room: 210 Gender: M Mannequin Maker: Magdy AMADO : 1945 Requested By: Cecile Talley Order Number: [id number] MD: Jai Cox Measurements Intervals [place] Rate: 63 P: ME: 173 QRS: 257 QRSD: 175 T: 237 QT: 409 QTc: 419 Interpretive Statements Atrial-ventricular dual-paced complexes No further analysis attempted due to paced rhythm Compared to ECG 03/23/2018 03:11:57 Premature ventricular complexes are no longer present Electronically Signed On 05-24-2018 7:57:43 TECHNICAL COMMUNICATOR by Jai Cox [email or web address] <ELECTRONICALLY SIGNED> By: Jai Cox MD, [facility] 05/24/18 [facility]7 2222 222 Jai Cox MD, [facility] /EPI
[2018-05-23 21:26] VITALS: BP 110/67
[2018-05-23 22:39] LABS: HEMATOCRIT 36.5 % (42.0-52.0); HEMOGLOBIN 11.7 gm/dL (14.0-18.0); MCH 21.9 pg (26.0-34.0); MCHC 32.2 g/dL (28.0-37.0); MCV 68.1 fL (80.0-100.0); PLATELET COUNT 163 thou/uL (150-400); RBC 5.36 mil/uL (4.50-6.00); RDW 20.8 % (10.5-14.5)
[2018-05-23 22:47] LABS: CALCIUM 10.2 mg/dL (8.5-10.1); CREATININE 2.7 mg/dL (0.7-1.3); POTASSIUM 4.9 mmol/L (3.5-5.1)
[2018-05-23 22:54] LABS: APTT 40.3 Seconds (24.5-32.8); INR 1.4; PROTIME 14.7 Seconds (9.3-11.4)
[2018-05-23 22:55] LABS: TROPONIN-I 0.13 ng/mL (<0.06)
[2018-05-23 23:39] LABS: ABSOLUTE NEUTROPHILS 5.9 thou/uL (1.4-8.2); HYPOCHROMASIA 2+; MICROCYTES 2+; POLYCHROMASIA 1+
[2018-05-23 23:40] LABS: ANISOCYTOSIS 2+; TOXIC GRANULATION 1+
[2018-05-23 23:55] VITALS: BP 113/70
[2018-05-24 00:10] VITALS: BP 139/72
[2018-05-24] MEDS ORDERED: PACERONE 200 M200 M1 PO (01:10)
[2018-05-24 04:45] LABS: HEMATOCRIT 34.9 % (42.0-52.0); HEMOGLOBIN 11.2 gm/dL (14.0-18.0); MCHC 32.1 g/dL (28.0-37.0); MCV 68.6 fL (80.0-100.0); RBC 5.09 mil/uL (4.50-6.00); RDW 20.8 % (10.5-14.5); WBC 8.1 thou/uL (4.0-11.0)
[2018-05-24 04:53] VITALS: BP 95/70
[2018-05-24 04:57] LABS: INR 1.4; PROTIME 14.6 Seconds (9.3-11.4)
[2018-05-24 05:00] LABS: CALCIUM 9.6 mg/dL (8.5-10.1); CREATININE 2.7 mg/dL (0.7-1.3); POTASSIUM 4.4 mmol/L (3.5-5.1); TROPONIN-I 0.14 ng/mL (<0.06)
[2018-05-24 11:11] VITALS: BP 100/63
[2018-05-24 15:06] VITALS: BP 116/79
[2018-05-24 20:35] VITALS: BP 104/72
[2018-05-25 05:36] VITALS: BP 118/63
[2018-05-25 06:38] LABS: INR 1.4; PROTIME 14.7 Seconds (9.3-11.4)
[2018-05-25 06:44] LABS: CALCIUM 9.9 mg/dL (8.5-10.1); CREATININE 2.7 mg/dL (0.7-1.3); MAGNESIUM 2.2 mg/dL (1.8-2.4); POTASSIUM 4.7 mmol/L (3.5-5.1)
[2018-05-25 08:13] VITALS: BP 119/67
[2018-05-25 11:24] VITALS: BP 118/67
[2018-05-25] MEDS ORDERED: ACETAMINOPHEN325 M1 PO (13:53)
[2018-05-25] MEDS ORDERED: MIRALAX17 GM PO (13:53)
[2018-05-25] MEDS ORDERED: IPRAT-ALBUT 0.5-3 ML INH (13:53)
[2018-05-25] MEDS ORDERED: COUMADIN 5 MG TA5 M1 PO (13:53)
[2018-05-25 15:01] VITALS: BP 118/67
[2018-05-25] MEDS ORDERED: NEBULIZER MISCELL (15:24)
[2018-05-25 15:35] VITALS: BP 118/67
== END 2018-05-25 16:15 | disposition home or self-care (01) | DRG 291 ==
LOC: ER 21:24 → 2N 23:34 → EROBS 23:34 → 2N 23:51
PROVIDERS: Emergency Medicine; Internal Medicine; Nurse Practitioner Family
DX: I13.0 Hypertensive heart and chronic kidney disease with heart failure and stage 1 through stage 4 chronic kidney disease, or unspecified chronic kidney disease (principal); I50.43 Acute on chronic combined systolic (congestive) and diastolic (congestive) heart failure; J96.01 Acute respiratory failure with hypoxia; J44.1 Chronic obstructive pulmonary disease with (acute) exacerbation; I48.2 Chronic atrial fibrillation; I25.5 Ischemic cardiomyopathy; E11.22 Type 2 diabetes mellitus with diabetic chronic kidney disease; E78.00 Pure hypercholesterolemia, unspecified; I25.10 Atherosclerotic heart disease of native coronary artery without angina pectoris; N18.3 Chronic kidney disease, stage 3 (moderate); N40.1 Benign prostatic hyperplasia with lower urinary tract symptoms; R33.8 Other retention of urine; M62.84 Sarcopenia; K21.9 Gastro-esophageal reflux disease without esophagitis; E66.9 Obesity, unspecified; Z68.30 Body mass index [BMI] 30.0-30.9, adult; Z99.3 Dependence on wheelchair; Z87.891 Personal history of nicotine dependence; Z95.810 Presence of automatic (implantable) cardiac defibrillator; Z86.73 Personal history of transient ischemic attack (TIA), and cerebral infarction without residual deficits; Z89.611 Acquired absence of right leg above knee; I25.2 Old myocardial infarction; Z95.1 Presence of aortocoronary bypass graft; Z95.820 Peripheral vascular angioplasty status with implants and grafts; Z79.01 Long term (current) use of anticoagulants; Z79.4 Long term (current) use of insulin; Z79.82 Long term (current) use of aspirin; Z79.899 Other long term (current) drug therapy; Z88.8 Allergy status to other drugs, medicaments and biological substances
CPT/HCPCS: 10081

== ENCOUNTER 2018-06-09 05:05 | Inpatient (IN) | payer OTHER ==
[~2018-06-09] VITALS: Ht 172.7 cm; Wt 94.0 kg
[2018-06-09] VITALS (7 sets, daily range): BP systolic 93–117; BP diastolic 61–75
--- NOTE | ~2018-06-09 | EKG ---
[address] [place] [address] ELECTROCARDIOGRAM REPORT Name: ROME FRYLIDell Sharpe Room #: 217-P ADM IN M.R.#: [id number] Admission: 06/09/18 Attend Phys: Robert Morgan MD Discharge: Date of : 41 Report #: [id number] THIS REPORT FOR: //name// [facility] ED Test Date: 2018-06-09 Test Time: 05:38:47 Pat Name: RASHIDA FRY Department: Room: 217 Gender: M Nutrition Services Worker: TK : 1945 Requested By: Kenny Fermin Order Number: [id number] MD: Karsten Summers Measurements Intervals [place] Rate: 88 P: 82 IN: 159 QRS: 245 QRSD: 178 T: 118 QT: 417 QTc: 505 Interpretive Statements Sinus Rhythm with A-V dual-paced No further analysis attempted due to paced rhythm Compared to ECG 05/23/2018 22:22:41 Electronically Signed On 06-11-2018 22:34:49 CARTOGRAPHIC ENGINEER by Karsten Summers [email or web address] <ELECTRONICALLY SIGNED> By: Karsten Summers MD 06/11/18 2234 Karsten Summers MD /EPI
[~2018-06-09 05:05] MED LIST changes: +ACETAMINOPHEN325 M1 PO; +IPRAT-ALBUT 0.5-3 ML INH; +NEBULIZER MISCELL
[2018-06-09 05:29] LABS: HEMATOCRIT 34.6 % (42.0-52.0); HEMOGLOBIN 10.7 gm/dL (14.0-18.0); MCH 21.3 pg (26.0-34.0); MCHC 30.8 g/dL (28.0-37.0); PLATELET COUNT 179 thou/uL (150-400); RBC 5.01 mil/uL (4.50-6.00); RDW 20.6 % (10.5-14.5); WBC 6.8 thou/uL (4.0-11.0)
[2018-06-09 05:41] LABS: CALCIUM 9.1 mg/dL (8.5-10.1); CREATININE 2.6 mg/dL (0.7-1.3); POTASSIUM 4.7 mmol/L (3.5-5.1)
[2018-06-09 05:49] LABS: ALBUMIN 3.2 g/dL (3.4-5.0); MAGNESIUM 2.1 mg/dL (1.8-2.4); TROPONIN-I 0.49 ng/mL (<0.06)
[2018-06-09 05:52] LABS: ABSOLUTE NEUTROPHILS 4.8 thou/uL (1.4-8.2); ANISOCYTOSIS 1+; MICROCYTES 2+; PLATELET ESTIMATE NORMAL
[2018-06-09 05:53] LABS: APTT 37.6 Seconds (24.5-32.8); D-DIMER 1.83 ug/mLFEU (0.19-0.50); INR 1.2; PROTIME 12.6 Seconds (9.3-11.4)
[2018-06-10 03:20] VITALS: BP 108/75
[2018-06-10 04:51] LABS: HEMATOCRIT 36.6 % (42.0-52.0); HEMOGLOBIN 11.1 gm/dL (14.0-18.0); MCHC 30.3 g/dL (28.0-37.0); MCV 69.4 fL (80.0-100.0); PLATELET COUNT 193 thou/uL (150-400); RBC 5.27 mil/uL (4.50-6.00); RDW 20.8 % (10.5-14.5); WBC 7.1 thou/uL (4.0-11.0)
[2018-06-10 05:03] LABS: INR 1.2; PROTIME 12.4 Seconds (9.3-11.4)
[2018-06-10 05:09] LABS: CALCIUM 9.5 mg/dL (8.5-10.1); CREATININE 2.8 mg/dL (0.7-1.3); MAGNESIUM 2.1 mg/dL (1.8-2.4); TROPONIN-I 0.37 ng/mL (<0.06)
[2018-06-10 06:17] LABS: ANISOCYTOSIS 2+; PLATELET ESTIMATE NORMAL
[2018-06-10 06:18] LABS: HYPOCHROMASIA 2+; MICROCYTES 2+; POLYCHROMASIA 1+; SCHISTOCYTES OCCASIONAL; TARGET CELLS FEW
[2018-06-10 08:53] VITALS: BP 104/61
[2018-06-10 12:19] VITALS: BP 104/68
[2018-06-10 16:24] VITALS: BP 101/63
[2018-06-10 19:50] VITALS: BP 105/63
[2018-06-11 05:03] VITALS: BP 127/84
[2018-06-11 07:25] VITALS: BP 124/83
[2018-06-11 07:45] LABS: INR 1.3; PROTIME 13.6 Seconds (9.3-11.4)
[2018-06-11 07:46] LABS: ALBUMIN 3.4 g/dL (3.4-5.0); CALCIUM 9.9 mg/dL (8.5-10.1); CREATININE 2.9 mg/dL (0.7-1.3)
[2018-06-11 11:30] VITALS: BP 111/77
[2018-06-11 16:41] VITALS: BP 125/82
[2018-06-11 19:09] LABS: URINE BILIRUBIN NEGATIVE (Negative); URINE BLOOD NEGATIVE (Negative); URINE CLARITY CLEAR; URINE COLOR YELLOW; URINE GLUCOSE-RANDOM* NEGATIVE (Negative); URINE KETONES NEGATIVE (Negative); URINE LEUKOCYTES-REFLEX NEGATIVE (Negative); URINE NITRITE-REFLEX NEGATIVE (Negative); URINE PROTEIN (DIPSTICK) NEGATIVE (Negative); URINE UROBILINOGEN 0.2 E.U./dl (0.2-1.0)
[2018-06-11 19:11] VITALS: BP 124/80
[2018-06-12 04:00] VITALS: BP 122/86
[2018-06-12 07:03] LABS: PROTIME 21.5 Seconds (9.3-11.4)
[2018-06-12 07:08] LABS: INR 2.1
[2018-06-12 07:53] VITALS: BP 129/89
[2018-06-12 08:04] VITALS: BP 135/89
[2018-06-12 11:36] VITALS: BP 110/75
[2018-06-12 15:27] VITALS: BP 112/79
[2018-06-12 20:41] VITALS: BP 133/90
[2018-06-13 04:07] LABS: ABSOLUTE NEUTROPHILS 10.5 thou/uL (1.4-8.2); BASOPHILS 0.2 % (0.0-2.0); HEMOGLOBIN 11.8 gm/dL (14.0-18.0); LYMPHOCYTES 5.5 % (24.0-44.0); MCH 21.5 pg (26.0-34.0); MCV 69.5 fL (80.0-100.0); MONOCYTES 9.6 % (1.0-8.0); PLATELET COUNT 187 thou/uL (150-400); POLYS 84.7 % (36.0-66.0); RBC 5.47 mil/uL (4.50-6.00); RDW 20.8 % (10.5-14.5); WBC 12.4 thou/uL (4.0-11.0)
[2018-06-13 04:21] LABS: INR 3.1; PROTIME 32.4 Seconds (9.3-11.4)
[2018-06-13 04:39] LABS: CREATININE 3.2 mg/dL (0.7-1.3); POTASSIUM 5.3 mmol/L (3.5-5.1)
[2018-06-13 05:51] VITALS: BP 137/87
[2018-06-13 08:33] VITALS: BP 142/77
[2018-06-13 13:18] VITALS: BP 144/86
[2018-06-13 16:00] VITALS: BP 124/72
[2018-06-13 18:35] VITALS: BP 118/70
[2018-06-14 01:35] LABS: ABSOLUTE NEUTROPHILS 9.3 thou/uL (1.4-8.2); BASOPHILS 0.2 % (0.0-2.0); HEMATOCRIT 35.5 % (42.0-52.0); HEMOGLOBIN 10.8 gm/dL (14.0-18.0); MCH 21.2 pg (26.0-34.0); MCHC 30.5 g/dL (28.0-37.0); MCV 69.5 fL (80.0-100.0); PLATELET COUNT 168 thou/uL (150-400); POLYS 87.8 % (36.0-66.0); RDW 20.7 % (10.5-14.5); WBC 10.6 thou/uL (4.0-11.0)
[2018-06-14 01:42] LABS: CALCIUM 9.6 mg/dL (8.5-10.1); CREATININE 3.2 mg/dL (0.7-1.3); POTASSIUM 4.8 mmol/L (3.5-5.1)
[2018-06-14 02:01] LABS: PROTIME 44.2 Seconds (9.3-11.4)
[2018-06-14 02:03] LABS: INR 4.3
[2018-06-14 08:26] VITALS: BP 109/60
[2018-06-14 22:16] VITALS: BP 129/75
[2018-06-15 01:45] LABS: URINE BILIRUBIN NEGATIVE (Negative); URINE BLOOD 2+ (Negative); URINE CLARITY CLEAR; URINE COLOR YELLOW; URINE GLUCOSE-RANDOM* NEGATIVE (Negative); URINE KETONES NEGATIVE (Negative); URINE LEUKOCYTES-REFLEX NEGATIVE (Negative); URINE NITRITE-REFLEX NEGATIVE (Negative); URINE PROTEIN (DIPSTICK) NEGATIVE (Negative); URINE UROBILINOGEN 0.2 E.U./dl (0.2-1.0)
[2018-06-15 02:05] LABS: BACTERIA-REFLEX 1-9 Few /HPF (None Seen); CASTS None Seen /LPF (None Seen); CRYSTALS None Seen /LPF (None Seen); MUCUS 0-3 Light strn/LPF (None Seen); SQUAMOUS 0-3 Few /LPF (0-3); URINE RBC 3-10 Few /HPF (0-2); URINE WBC-REFLEX 0-5 Rare /HPF (0-5)
[2018-06-15 07:40] VITALS: BP 126/79
[2018-06-15 08:12] LABS: INR 2.9; PROTIME 30.1 Seconds (9.3-11.4)
[2018-06-15 09:16] LABS: CALCIUM 10.2 mg/dL (8.5-10.1); CREATININE 3.2 mg/dL (0.7-1.3); POTASSIUM 4.7 mmol/L (3.5-5.1)
[2018-06-15] MEDS ORDERED: CEFUROXIME250 MG PO (13:24)
[2018-06-15] MEDS ORDERED: DEEP SEA NASAL44 M1 NASAL (13:24)
[2018-06-15] MEDS ORDERED: PREDNISONE 20 M20 M1 PO (13:24)
[2018-06-15] MEDS ORDERED: CODEINE SULFATE30 MG PO (13:24)
[2018-06-15] MEDS ORDERED: GUAIFENESIN DM S5 ML PO (13:24)
[2018-06-15] MEDS ORDERED: CEPACOL SORE T1 EAC7 PO (13:24)
[2018-06-15 15:49] VITALS: BP 129/75
[2018-06-15 17:38] VITALS: BP 129/75
== END 2018-06-15 18:20 | disposition home health service (06) | DRG 871 ==
LOC: ER 05:05 → EROBS 06:13 → 2N 06:13 → SICU 06-13 19:03 → ENTRNSPT 06-15 17:44 → SICU 06-15 18:20
PROVIDERS: Emergency Medicine; Family Medicine; Hospitalist; Internal Medicine Cardiovascular Disease; Nurse Practitioner; Nurse Practitioner Acute Care; Nurse Practitioner Gerontology
DX: A41.9 Sepsis, unspecified organism (principal); I50.43 Acute on chronic combined systolic (congestive) and diastolic (congestive) heart failure; J96.21 Acute and chronic respiratory failure with hypoxia; J18.9 Pneumonia, unspecified organism; I13.0 Hypertensive heart and chronic kidney disease with heart failure and stage 1 through stage 4 chronic kidney disease, or unspecified chronic kidney disease; J44.1 Chronic obstructive pulmonary disease with (acute) exacerbation; J44.0 Chronic obstructive pulmonary disease with (acute) lower respiratory infection; E78.00 Pure hypercholesterolemia, unspecified; I25.5 Ischemic cardiomyopathy; N18.3 Chronic kidney disease, stage 3 (moderate); Z60.2 Problems related to living alone; I48.0 Paroxysmal atrial fibrillation; R91.1 Solitary pulmonary nodule; I87.2 Venous insufficiency (chronic) (peripheral); E11.22 Type 2 diabetes mellitus with diabetic chronic kidney disease; E11.622 Type 2 diabetes mellitus with other skin ulcer; I50.9 Heart failure, unspecified; E87.70 Fluid overload, unspecified; K59.09 Other constipation; Z79.4 Long term (current) use of insulin; I27.20 Pulmonary hypertension, unspecified; Z95.0 Presence of cardiac pacemaker; Z95.1 Presence of aortocoronary bypass graft; Z86.73 Personal history of transient ischemic attack (TIA), and cerebral infarction without residual deficits; Z89.611 Acquired absence of right leg above knee; Z88.8 Allergy status to other drugs, medicaments and biological substances; Z87.891 Personal history of nicotine dependence; Z79.01 Long term (current) use of anticoagulants; Z79.82 Long term (current) use of aspirin; Z79.899 Other long term (current) drug therapy; I25.2 Old myocardial infarction
CPT/HCPCS: 10081; 15002

== ENCOUNTER 2018-06-16 03:33 | Emergency (ER) | payer OTHER ==
[~2018-06-16] VITALS: Ht 172.7 cm; Wt 86.6 kg
--- NOTE | ~2018-06-16 | EKG ---
[address] [address] ELECTROCARDIOGRAM REPORT Name: ROME FRYLIE Dell Room #: DEP [facility]#: [id number] Admission: 06/16/18 Attend Phys: Discharge: 06/16/18 Date of : 41 Report #: [id number] THIS REPORT FOR: //name// [facility] ED Test Date: 2018-06-16 Test Time: 03:48:45 Pat Name: RASHIDA FRY Department: Room: Gender: Football Coach: Paulo ABDUL : 1945 Requested By: Kenny Fermin Order Number: [id number] MD: Noel Alvarado Measurements Intervals [place] Rate: 85 P: IA: 121 QRS: -69 QRSD: 149 T: 221 QT: 468 QTc: 557 Interpretive Statements Atrial-sensed ventricular-paced complexes PVCs Compared to ECG 06/09/2018 05:38:47 Sinus rhythm no longer present Electronically Signed On 06-16-2018 8:04:07 NEW AUTOS DELIVERY DRIVER by Noel Alvarado [email or web address] <ELECTRONICALLY SIGNED> By: Noel Alvarado MD 06/16/18 0804 034 7 Noel Alvarado MD /MOUNA
[~2018-06-16 03:33] MED LIST changes: +CEFUROXIME250 MG PO; +CEPACOL SORE T1 EAC7 PO; +CODEINE SULFATE30 MG PO; +DEEP SEA NASAL44 M1 NASAL; +GUAIFENESIN DM S5 ML PO; +PREDNISONE 20 M20 M1 PO
[2018-06-16 04:01] LABS: ABSOLUTE NEUTROPHILS 6.7 thou/uL (1.4-8.2); BASOPHILS 0.2 % (0.0-2.0); HEMOGLOBIN 11.8 gm/dL (14.0-18.0); LYMPHOCYTES 5.7 % (24.0-44.0); MCV 67.8 fL (80.0-100.0); MONOCYTES 4.9 % (1.0-8.0); PLATELET COUNT 174 thou/uL (150-400); POLYS 89.2 % (36.0-66.0); RBC 5.61 mil/uL (4.50-6.00); RDW 20.3 % (10.5-14.5); WBC 7.5 thou/uL (4.0-11.0)
[2018-06-16 04:07] LABS: CALCIUM 10.4 mg/dL (8.5-10.1); CREATININE 3.3 mg/dL (0.7-1.3); POTASSIUM 5.1 mmol/L (3.5-5.1)
[2018-06-16 04:16] LABS: ALBUMIN 3.5 g/dL (3.4-5.0); MAGNESIUM 2.5 mg/dL (1.8-2.4); TOTAL BILIRUBIN 1.9 mg/dL (<0.1-1.0); TOTAL PROTEIN 7.4 g/dL (6.4-8.2); TROPONIN-I 0.24 ng/mL (<0.06)
[2018-06-16 04:56] LABS: INR 2.6; PROTIME 26.8 Seconds (9.3-11.4)
[2018-06-16 05:37] LABS: ANISOCYTOSIS 2+; HYPOCHROMASIA 2+; MICROCYTES 2+; POLYCHROMASIA OCCASIONAL
[2018-06-16 06:23] VITALS: BP 117/61
[2018-06-22] MEDS ORDERED: COUMADIN 2.5MG2.5 M1 PO (12:00)
== END 2018-06-16 06:24 | disposition home or self-care (01) ==
LOC: ER 03:33
PROVIDERS: Emergency Medicine
DX: I42.9 Cardiomyopathy, unspecified (principal); I12.9 Hypertensive chronic kidney disease with stage 1 through stage 4 chronic kidney disease, or unspecified chronic kidney disease; E11.22 Type 2 diabetes mellitus with diabetic chronic kidney disease; N18.3 Chronic kidney disease, stage 3 (moderate); D64.9 Anemia, unspecified; R79.89 Other specified abnormal findings of blood chemistry; R94.5 Abnormal results of liver function studies; I48.91 Unspecified atrial fibrillation; E78.00 Pure hypercholesterolemia, unspecified; Z95.0 Presence of cardiac pacemaker; Z86.73 Personal history of transient ischemic attack (TIA), and cerebral infarction without residual deficits; Z87.891 Personal history of nicotine dependence; Z88.8 Allergy status to other drugs, medicaments and biological substances; Z79.4 Long term (current) use of insulin

== ENCOUNTER → 2018-06-22 | Outpatient (CLI) | payer OTHER ==
[2018-06-22 08:15] VITALS: BP 113/67
[2018-06-22 08:31] LABS: HEMATOCRIT 37.6 % (42.0-52.0); HEMOGLOBIN 11.8 gm/dL (14.0-18.0); MCH 21.4 pg (26.0-34.0); MCHC 31.3 g/dL (28.0-37.0); MCV 68.3 fL (80.0-100.0); RBC 5.51 mil/uL (4.50-6.00); WBC 12.7 thou/uL (4.0-11.0)
[2018-06-22 08:39] LABS: CALCIUM 9.6 mg/dL (8.5-10.1); CREATININE 2.2 mg/dL (0.7-1.3); POTASSIUM 5.2 mmol/L (3.5-5.1)
[2018-06-22 09:13] LABS: INR 1.3; PROTIME 13.7 Seconds (9.3-11.4)
== END | disposition home or self-care (01) ==
LOC: CATH 06-07 07:24
PROVIDERS: Internal Medicine Cardiovascular Disease
DX: T82.598A Other mechanical complication of other cardiac and vascular devices and implants, initial encounter (principal); I13.0 Hypertensive heart and chronic kidney disease with heart failure and stage 1 through stage 4 chronic kidney disease, or unspecified chronic kidney disease; I50.9 Heart failure, unspecified; N18.9 Chronic kidney disease, unspecified; J44.9 Chronic obstructive pulmonary disease, unspecified; I48.0 Paroxysmal atrial fibrillation; I42.9 Cardiomyopathy, unspecified; I73.9 Peripheral vascular disease, unspecified; N40.1 Benign prostatic hyperplasia with lower urinary tract symptoms; D64.9 Anemia, unspecified; Z79.01 Long term (current) use of anticoagulants; Z88.8 Allergy status to other drugs, medicaments and biological substances; Z79.82 Long term (current) use of aspirin; Z79.899 Other long term (current) drug therapy; Z79.4 Long term (current) use of insulin; Z98.890 Other specified postprocedural states; Y83.8 Other surgical procedures as the cause of abnormal reaction of the patient, or of later complication, without mention of misadventure at the time of the procedure

== ENCOUNTER 2018-06-26 12:47 | Emergency (ER) | payer OTHER ==
[~2018-06-26] VITALS: Ht 172.7 cm; Wt 86.2 kg
[2018-06-26 12:50] VITALS: BP 106/57
[2018-06-26] MEDS ORDERED: TESSALON PERLE100 MG PO (13:45)
[2018-06-26] MEDS ORDERED: ALBUTEROL2.5 MG/31 INH (13:45)
== END 2018-06-26 14:34 | disposition home or self-care (01) ==
LOC: ER 12:47
DX: Z48.01 Encounter for change or removal of surgical wound dressing (principal); R05 Cough; I12.9 Hypertensive chronic kidney disease with stage 1 through stage 4 chronic kidney disease, or unspecified chronic kidney disease; N18.3 Chronic kidney disease, stage 3 (moderate); E11.9 Type 2 diabetes mellitus without complications; I48.91 Unspecified atrial fibrillation; E78.00 Pure hypercholesterolemia, unspecified; E78.5 Hyperlipidemia, unspecified; I25.10 Atherosclerotic heart disease of native coronary artery without angina pectoris; I42.9 Cardiomyopathy, unspecified; Z95.0 Presence of cardiac pacemaker; Z86.73 Personal history of transient ischemic attack (TIA), and cerebral infarction without residual deficits; Z88.8 Allergy status to other drugs, medicaments and biological substances; Z87.891 Personal history of nicotine dependence; Z79.4 Long term (current) use of insulin

== ENCOUNTER → 2018-06-29 | Outpatient (CLI) | payer OTHER ==
[~2018-06-29] MED LIST changes: +ALBUTEROL2.5 MG/31 INH; +TESSALON PERLE100 MG PO
[2018-06-29 07:38] LABS: INR 1.2; PROTIME 12.7 Seconds (9.3-11.4)
[2018-06-29 07:38] LABS: CALCIUM 9.1 mg/dL (8.5-10.1); CREATININE 2.1 mg/dL (0.7-1.3); POTASSIUM 4.5 mmol/L (3.5-5.1)
[2018-06-29 10:35] VITALS: BP 113/56
== END ==
LOC: CATH 06:48
PROVIDERS: Internal Medicine Cardiovascular Disease
DX: I13.0 Hypertensive heart and chronic kidney disease with heart failure and stage 1 through stage 4 chronic kidney disease, or unspecified chronic kidney disease (principal); E11.22 Type 2 diabetes mellitus with diabetic chronic kidney disease; N18.9 Chronic kidney disease, unspecified; I50.22 Chronic systolic (congestive) heart failure; I42.9 Cardiomyopathy, unspecified; I48.0 Paroxysmal atrial fibrillation; J44.9 Chronic obstructive pulmonary disease, unspecified

== ENCOUNTER → 2018-07-06 | Outpatient (CLI) | payer OTHER ==
[2018-07-06 07:21] VITALS: BP 134/73
[2018-07-06 11:44] LABS: CALCIUM 9.6 mg/dL (8.5-10.1); CREATININE 2.3 mg/dL (0.7-1.3); POTASSIUM 4.8 mmol/L (3.5-5.1)
[2018-07-06 11:53] LABS: INR 1.3; PROTIME 13.4 Seconds (9.3-11.4)
== END ==
LOC: CATH 06:53
PROVIDERS: Internal Medicine Cardiovascular Disease
DX: I13.0 Hypertensive heart and chronic kidney disease with heart failure and stage 1 through stage 4 chronic kidney disease, or unspecified chronic kidney disease (principal); E11.22 Type 2 diabetes mellitus with diabetic chronic kidney disease; N18.9 Chronic kidney disease, unspecified; I50.22 Chronic systolic (congestive) heart failure; I42.9 Cardiomyopathy, unspecified; I48.0 Paroxysmal atrial fibrillation; J44.9 Chronic obstructive pulmonary disease, unspecified

== ENCOUNTER → 2018-07-13 | Outpatient (CLI) | payer OTHER ==
[2018-07-13 07:37] LABS: INR 1.4; PROTIME 14.3 Seconds (9.3-11.4)
[2018-07-13 07:45] LABS: CALCIUM 9.1 mg/dL (8.5-10.1); CREATININE 1.3 mg/dL (0.7-1.3); POTASSIUM 4.5 mmol/L (3.5-5.1)
[2018-07-13 13:40] VITALS: BP 114/64
== END ==
LOC: CATH 06:45
PROVIDERS: Internal Medicine Cardiovascular Disease
DX: I50.9 Heart failure, unspecified (principal)

== ENCOUNTER → 2018-07-20 | Outpatient (CLI) | payer OTHER ==
[2018-07-20 07:49] VITALS: BP 124/64
[2018-07-20 07:59] LABS: CALCIUM 9.4 mg/dL (8.5-10.1); CREATININE 2.5 mg/dL (0.7-1.3); POTASSIUM 5.2 mmol/L (3.5-5.1)
[2018-07-20 08:02] LABS: INR 1.3
== END ==
LOC: CATH 07:12
PROVIDERS: Internal Medicine Cardiovascular Disease
DX: I50.9 Heart failure, unspecified (principal)

== ENCOUNTER → 2018-07-27 | Outpatient (CLI) | payer OTHER ==
[2018-07-27 09:08] LABS: INR 1.8; PROTIME 18.4 Seconds (9.3-11.4)
[2018-07-27 09:11] LABS: CALCIUM 9.6 mg/dL (8.5-10.1); CREATININE 2.6 mg/dL (0.7-1.3); POTASSIUM 4.3 mmol/L (3.5-5.1)
== END ==
LOC: CATH 06:55
PROVIDERS: Internal Medicine Cardiovascular Disease
DX: I13.0 Hypertensive heart and chronic kidney disease with heart failure and stage 1 through stage 4 chronic kidney disease, or unspecified chronic kidney disease (principal); E11.22 Type 2 diabetes mellitus with diabetic chronic kidney disease; N18.9 Chronic kidney disease, unspecified; I50.22 Chronic systolic (congestive) heart failure; I42.9 Cardiomyopathy, unspecified; I48.0 Paroxysmal atrial fibrillation; J44.9 Chronic obstructive pulmonary disease, unspecified

== ENCOUNTER → 2018-08-17 | Outpatient (CLI) | payer OTHER ==
[2018-08-17 09:32] LABS: CALCIUM 9.8 mg/dL (8.5-10.1); CREATININE 2.7 mg/dL (0.7-1.3); POTASSIUM 4.9 mmol/L (3.5-5.1)
[2018-08-17 09:35] LABS: HEMOGLOBIN 10.3 gm/dL (14.0-18.0); MCH 21.7 pg (26.0-34.0); MCHC 31.2 g/dL (28.0-37.0); MCV 69.6 fL (80.0-100.0); RBC 4.75 mil/uL (4.50-6.00); RDW 20.7 % (10.5-14.5); WBC 7.1 thou/uL (4.0-11.0)
[2018-08-17 09:43] LABS: PROTIME 28.8 Seconds (9.3-11.4)
[2018-08-17 09:54] LABS: APTT 58.1 Seconds (24.5-32.8); INR 2.8
[2018-08-17 20:07] LABS: GLYCOHEMOGLOBIN (HGB A1C) 7.3 % (4.8-5.6)
[2018-08-19] VITALS (44 sets, daily range): BP systolic 57–234; BP diastolic 31–90
== END ==
LOC: CATH 08-03 13:52
PROVIDERS: Internal Medicine Cardiovascular Disease
DX: I50.22 Chronic systolic (congestive) heart failure (principal)

== ENCOUNTER 2018-08-19 03:48 | Inpatient (IN) | payer OTHER ==
[2018-08-19] VITALS (31 sets, daily range): BP systolic 61–101; BP diastolic 11–69
[~2018-08-19] VITALS: Ht 172.7 cm; Wt 91.0 kg
--- NOTE | ~2018-08-19 | HC ---
[facility] [address] [place] [address] CONSULTATION Name: RASHIDA FRY Room #: 236-P ADM IN M.R.#: [id number] Admission: 08/19/18 Attend Phys: Rachael Hyde Discharge: Date of : 43 Report #: [id number] THIS REPORT FOR: //name// CC: Chad Lizarraga REASON FOR CONSULTATION: VT storm. HISTORY OF PRESENT ILLNESS: The patient is a 72-year-old with history of coronary artery disease, severe ischemic cardiomyopathy, EF around 10-15%, who frequently comes in for milrinone infusions. 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 The patient presented to the Emergency Room with increased shortness of breath and found to be in sustained monomorphic ventricular tachycardia, heart rate of 140 beats per minute. He was cardioverted in the Emergency Room and intubated and has had multiple recurrent episodes of VT requiring external cardioversion. He is now on multiple vasopressors including Levophed at max dose, dopamine nearly at max dose and epinephrine. His systolics are in the 60s. Approximately 30 minutes ago, he had another episode of VT requiring external cardioversion. I am here to evaluate his device function. His biventricular ICD was interrogated by [employer]. He has a single zone at 188 beats per minute, but nothing for the rhythms at lower rate. I made several programming changes. I increased his VT zone from 140 beats per minute to 188 beats per minute. I left his VF zone at greater than 188 beats per minute. Within the VT zone, he has 3 rounds of ATP and then max output shocks. The patient is intubated and sedated. REVIEW OF SYSTEMS: Unable to obtain. PAST MEDICAL HISTORY: As mentioned above. FAMILY HISTORY: Noncontributory. SOCIAL HISTORY: Unable to obtain. REVIEW OF SYSTEMS: Unable to obtain. PHYSICAL EXAMINATION: GENERAL: Intubated and sedated, in no acute distress. HEENT: Sclerae are anicteric. HEART: Regular rate and rhythm with no murmurs, rubs, gallops. He has a displaced PMI. LUNGS: Clear to auscultation bilaterally. ABDOMEN: Soft, nontender, nondistended with no hepatosplenomegaly. EXTREMITIES: There is no clubbing, cyanosis or edema. [facility] [address] [place] [address] CONSULTATION Name: RASHIDA FRY Room #: 236-P [facility] IN [facility]#: [id number] Admission: 08/19/18 Attend Phys: Rachael Hyde Discharge: Date of : 43 Report #: [id number] NEUROLOGIC: Cranial nerves 2-12 are intact. LABORATORY DATA: His chest x-ray shows bilateral cephalization. He has evidence of a [employer] biventricular ICD that is in place. He has sternal wires as well. It appears that he has a right-sided port. His 12-lead EKG shows a sinus rhythm with a ventricular paced QRS morphology VITAL SIGNS: Temperature is 36.4, blood pressure is in the 60s/40s,, pulse is in the 60s-70s, sats 100%. White count is 12, hemoglobin 10, platelets 193. Sodium 128, potassium 4.7, BUN 80, creatinine 3.8, total bilirubin 1. Troponin is 8, increased. His proBNP is 7000. PH is 7.2, pCO2 is 32, pO2 of 105. ASSESSMENT AND PLAN: 1. VT storm. 2. Cardiogenic shock. 3. Ischemic cardiomyopathy. 4. Acute renal failure. 5. Metabolic acidosis. 6. Elevated troponin, likely secondary to cardiogenic shock and the VT/VF. 7. End-stage cardiomyopathy. In summary, the patient is a 72-year-old who is having VT storm and cardiogenic shock. I made some programming changes to his defibrillator. I increased his pacing rate from 60-75 beats per minute to hopefully help with some cardiac output. I also made some programming changes to his biventricular pacing with the LV lead pacing 30 milliseconds prior to the RV lead to see if this will help with better BiV pacing and better cardiac output (all this is doubtful). I recommend that we continue with vasopressor therapy. Obviously use of vasopressors will likely exacerbate his underlying ischemia and ventricular arrhythmias. I recommend that we continue with amiodarone at 1 mg per minute continuously. We can continue with the lidocaine as well. I made programming changes to his defibrillator including lowering his VT zone down to 140 beats per minute to treat any arrhythmias at the slower rate. I spoke with the family including a sister and told him that his overall prognosis is very poor and likelihood of surviving both these ventricular arrhythmias and cardiogenic shock are unlikely. They understand. We will continue to follow. By: 1203 1434 Noel Alvarado MD /nt
--- NOTE | 2018-08-19 04:15 | NUR ---
DR ADEN EXPLAINED PROCEDURE TO PT, HE VERBALIZES UNDERSTANDING CONSENT SIGNED
[2018-08-19 04:16] LABS: ABSOLUTE NEUTROPHILS 5.6 thou/uL (1.4-8.2); BASOPHILS 1.3 % (0.0-2.0); EOSINOPHILS 1.8 % (0.0-3.0); HEMATOCRIT 33.3 % (42.0-52.0); HEMOGLOBIN 10.3 gm/dL (14.0-18.0); LYMPHOCYTES 13.1 % (24.0-44.0); MCH 21.6 pg (26.0-34.0); MCV 69.6 fL (80.0-100.0); MONOCYTES 11.2 % (1.0-8.0); PLATELET COUNT 174 thou/uL (150-400); POLYS 72.6 % (36.0-66.0); RBC 4.79 mil/uL (4.50-6.00); RDW 20.6 % (10.5-14.5); WBC 7.7 thou/uL (4.0-11.0)
[2018-08-19 04:23] LABS: CALCIUM 9.4 mg/dL (8.5-10.1); CREATININE 3.2 mg/dL (0.7-1.3); POTASSIUM 5.6 mmol/L (3.5-5.1)
[2018-08-19 04:27] LABS: PROTIME 30.7 Seconds (9.3-11.4)
--- NOTE | 2018-08-19 04:34 | NUR ---
DR ADEN UPDATED ON AMIODARONE AND BP, MEASURES TO CORRECT, SALINE IS UP
[2018-08-19 04:35] LABS: TROPONIN-I 2.51 ng/mL (<0.06)
--- NOTE | 2018-08-19 05:24 | NUR ---
CONTACTED SISTER SAIRA, INFORMED OF HIS VISIT, CONCERN THAT FAMILY NEEDS TO BE HERE
[2018-08-19 05:58] LABS: BE(vivo) -14.3 mmol/L (-2 to +3); HCO3 12.2 mmol/L (22.0-26.0); PCO2 30.7 mmHg (35.0-45.0); PO2 349.6 mmHg (80.0-100.0); pH 7.217 (7.360-7.450); sO2 99.7 % (92.0-98.0)
[2018-08-19 06:21] LABS: ANISOCYTOSIS 2+; HYPOCHROMASIA 2+; POLYCHROMASIA OCCASIONAL; TARGET CELLS FEW
[2018-08-19 06:22] LABS: MICROCYTES 2+
--- NOTE | 2018-08-19 06:28 | NUR ---
FAMILY,SISTER NOTIFIED, UPDATED ON ARRIVAL AND STATUS NOW AT 3736
--- NOTE | 2018-08-19 06:29 | NUR ---
FAMILY IS HERE, EXPLAINED STATUS AND CONDITION TO SISTER, HE HAS 3 SONS AND MULTIPLE SIBLINGS, SHE WILL NOTIFY HIS CHILDREN, 1 SON IS LOCAL, 2 SONS LIVE IN [place]
[2018-08-19 08:16] LABS: HCO3 18.3 mmol/L (22.0-26.0); PCO2 36.2 mmHg (35.0-45.0); PO2 90.2 mmHg (80.0-100.0); sO2 96.4 % (92.0-98.0)
[2018-08-19 08:17] LABS: pH 7.322 (7.360-7.450)
[2018-08-19 09:22] LABS: APTT 35.7 Seconds (24.5-32.8); FIBRINOGEN 387.3 mg/dL (210-360)
--- NOTE | 2018-08-19 10:11 | EKG ---
[address] [place] [address] ELECTROCARDIOGRAM REPORT Name: FRYRASHIDA Room #: 236-P ADM IN M.R.#: [id number] Admission: 08/19/18 Attend Phys: Rachael Hyde Discharge: Date of : 41 Report #: [id number] THIS REPORT FOR: //name// [facility] ED Test Date: 2018-08-19 Test Time: 04:46:18 Pat Name: RASHIDA FRY Department: Room: [facility] Gender: M Shop Mechanic Helper: OLE : 1945 Requested By: Deonna Barrera Order Number: [id number] MD: Noel Alvarado Measurements Intervals [place] Rate: 147 P: 0 TX: QRS: -82 QRSD: 164 T: 108 QT: 388 QTc: 607 Interpretive Statements Sustained monomorphic VT Electronically Signed On 08-19-2018 10:11:07 GREEN MARKETING ANALYST by Noel Alvarado [email or web address] <ELECTRONICALLY SIGNED> By: Noel Alvarado MD 08/19/18 1011 0446 0446 Noel Alvarado MD /MOUNA
--- NOTE | 2018-08-19 10:11 | EKG ---
[address] [place] [address] ELECTROCARDIOGRAM REPORT Name: RASHIDA FRY Room #: 236-P ADM IN M.R.#: [id number] Admission: 08/19/18 Attend Phys: Rachael Hyde Discharge: Date of : 41 Report #: [id number] THIS REPORT FOR: //name// [facility] ED Test Date: 2018-08-19 Test Time: 03:58:09 Pat Name: RASHIDA FRY Department: Room: [facility] Gender: M Director Of Teenage Activities: OLE : 1945 Requested By: Deonna Barrera Order Number: [id number] MD: Noel Alvarado Measurements Intervals [place] Rate: 140 P: LA: QRS: -83 QRSD: 158 T: 106 QT: 379 QTc: 579 Interpretive Statements Sustained monomorphic VT Electronically Signed On 08-19-2018 10:10:45 GENERAL MACHINE OPERATOR by Noel Alvarado [email or web address] <ELECTRONICALLY SIGNED> By: Noel Alvarado MD 08/19/18 1010 0358 0358 Noel Alvarado MD /MOUNA
--- NOTE | 2018-08-19 10:11 | EKG ---
[address] [address] [facility] [place] [address] ELECTROCARDIOGRAM REPORT Name: RASHIDA FRY Room #: 236-P ADM IN M.R.#: [id number] Admission: 08/19/18 Attend Phys: Rachael Hyde Discharge: Date of : 41 Report #: [id number] THIS REPORT FOR: //name// [facility] ED Test Date: 2018-08-19 Test Time: 05:00:32 Pat Name: RASHIDA FRY Department: Room: 236 Gender: M Clinical Data Programmer: OLE : 1945 Requested By: Chad Rodriguez Order Number: [id number] MD: Noel Alvarado Measurements Intervals [place] Rate: 91 P: 76 [place]: 169 QRS: 232 QRSD: 171 T: 45 QT: 406 QTc: 500 Interpretive Statements Atrial-sensed ventricular-paced complexes No further analysis attempted due to paced rhythm Compared to ECG 06/16/2018 03:48:45 Ventricular premature complex(es) no longer present Electronically Signed On 08-19-2018 10:11:36 FREEZING ROOM WORKER by Noel Alvarado [email or web address] <ELECTRONICALLY SIGNED> By: Noel Alvarado MD 08/19/18 1011 0500 0500 Noel Alvarado MD /EPI
--- NOTE | 2018-08-19 10:14 | EKG ---
[address] [address] ELECTROCARDIOGRAM REPORT Name: FRYRASHIDA JR Room #: 236-P ADM IN M.R.#: [id number] Admission: 08/19/18 Attend Phys: Rachael Hyde Discharge: Date of : 41 Report #: [id number] THIS REPORT FOR: //name// [facility] Test Date: 2018-08-19 Test Time: 09:16:09 Pat Name: RASHIDA FRY Department: Room: [facility] Gender: M Car Worker: NATHEN : 1945 Requested By: Deonna Barrera Order Number: [id number] MD: Noel Alvarado Measurements Intervals [place] Rate: 82 P: 83 [place]: 173 QRS: 247 QRSD: 196 T: 54 QT: 427 QTc: 499 Interpretive Statements Atrial-sensed ventricular-paced complexes No further analysis attempted due to paced rhythm Compared to ECG 06/16/2018 03:48:45 Ventricular premature complex(es) no longer present Electronically Signed On 08-19-2018 10:14:22 PLANT MAINTENANCE ENGINEER by Noel Alvarado [email or web address] <ELECTRONICALLY SIGNED> By: Noel Alvarado MD 08/19/18 1014 5 5 Noel Alvarado MD /EPI
--- NOTE | 2018-08-19 10:52 | NUR ---
VASCULAR ACCESS CONSULTED FOR PICC LINE, PT'S LABS,MEDS,HISTORY REVIEWED. PT HAS REJ WITH MEDS RUNNING UNABLE TO STOP MEDS, ATTEMPTED PIV X2, DR ROACH HERE,GAVE ORDER FOR OK FOR PICC PLACEMENT. PT WAS PREPPED AND DRAPED FOR MAX BARRIER,1% LIDOCAINE GIVEN BEN BRACHIAL WIDELY PATENT WITH USG. 5FR TL POWER PICC TRIMMED TO 48CM INSERTED TO 0CM WITH BRISK BR. PICC SECURED CALLED FOR STAT CXR. WAITING FOR RADIOLOGY THEN PT WENT PULSELESS, CODE CALLED.
[2018-08-19 11:10] LABS: BE(vivo) -10.2 mmol/L (-2 to +3); HCO3 15.2 mmol/L (22.0-26.0); PCO2 32.1 mmHg (35.0-45.0); PO2 105.3 mmHg (80.0-100.0); sO2 97.4 % (92.0-98.0)
[2018-08-19 11:11] LABS: pH 7.293 (7.360-7.450)
[2018-08-19 11:13] LABS: HEMATOCRIT 34.1 % (42.0-52.0); HEMOGLOBIN 10.2 gm/dL (14.0-18.0); MCH 21.6 pg (26.0-34.0); MCHC 30.1 g/dL (28.0-37.0); MCV 71.7 fL (80.0-100.0); RBC 4.75 mil/uL (4.50-6.00); RDW 20.9 % (10.5-14.5); WBC 12.4 thou/uL (4.0-11.0)
[2018-08-19 11:23] LABS: CALCIUM 8.5 mg/dL (8.5-10.1); CREATININE 3.8 mg/dL (0.7-1.3); POTASSIUM 4.7 mmol/L (3.5-5.1)
[2018-08-19 11:27] LABS: PROTIME 37.8 Seconds (9.3-11.4)
[2018-08-19 11:28] LABS: INR 3.7
[2018-08-19 11:32] LABS: ALBUMIN 2.8 g/dL (3.4-5.0); TOTAL BILIRUBIN 1.1 mg/dL (<0.1-1.0); TOTAL PROTEIN 6.5 g/dL (6.4-8.2)
[2018-08-19 11:35] LABS: TROPONIN-I 8.01 ng/mL (<0.06)
--- NOTE | 2018-08-19 13:03 | HC ---
[facility] [place] [address] CONSULTATION Name: ROME FRYLIDell Sharpe Room #: 236-P ADM IN M.R.#: [id number] Admission: 08/19/18 Attend Phys: Rachael Hyde Discharge: Date of : 41 Report #: [id number] THIS REPORT FOR: //name// CC: Chad Price [facility] REFERRAL PHYSICIAN: Dr. Hyde. REASON FOR REFERRAL: Cardiac arrest, respiratory failure. HISTORY OF PRESENT ILLNESS: The patient is a 72-year-old -L[place] male who presented to the Emergency Room with chest tightness and tachycardia. He was subsequently rested and intubated. A pulmonary consultation was requested. The patient is known to the pulmonary service. He has multiple severe conditions including coronary artery disease, severe ischemic cardiomyopathy with ejection fraction of 15%, chronic kidney disease, hypotension, diabetes mellitus type 2. He has peripheral artery disease, undergoing right AKA in 2000. He was last hospitalized in 05/2018 for volume overload. When he presented to Emergency Room with chest pain, EKG was performed showing ventricular tachycardia. It was felt to be monomorphic. Amiodarone was initiated. He was also hypotensive on presentation to the Emergency Room. IV fluids were given along with vasopressors. Subsequently, the patient cardiac arrested and was intubated with an 8 mm ET tube. He remained hypotensive, being given vasopressin. The patient was subsequently transferred to ICU. In the ICU, the patient remained unstable with dysrhythmias associated with hypotension. He remains on vasopressors. He is intubated. Arterial blood gas was reviewed and is adequate. Post-intubation, the patient's mental status was felt to be stable, moving all extremities. On presentation to the Emergency Room, his mental status was felt to be alert and oriented. The patient was just seen by Cardiology in regards to his cardiac arrest. PAST MEDICAL HISTORY: As mentioned above, coronary artery disease with severe ischemic cardiomyopathy, ejection fraction of 15%, moderate diastolic dysfunction with coronary artery disease, undergoing coronary artery bypass surgery in 1988, history of myocardial infarction, status post biventricular pacer, defibrillator implantation, chronic atrial fibrillation on chronic anticoagulation, diabetes mellitus, hypercholesterolemia, chronic kidney disease stage 3, history of CVA in 2006 without any residual neurologic deficits, hypotension, peripheral artery disease status post right AKA in 2000, [facility] [address] [place] [address] CONSULTATION Name: LISANDRARASHIDA E Room #: 236-P [facility] IN .R.#: [id number] Admission: 08/19/18 Attend Phys: Rachael Hyde Discharge: Date of : 43 Report #: [id number] carpal tunnel surgery, history of tobacco use, probable COPD. PAST SURGICAL HISTORY: As mentioned above. ALLERGIES: To JACEK INHIBITORS, which causes anaphylaxis along with tongue swelling, presumed (lisinopril). HOME MEDICATIONS: Reviewed. This include Tessalon Perles, nebulized DuoNeb, MiraLax, Ceftin, codeine, guaifenesin, spironolactone, Lipitor, Coumadin, Protonix, aspirin, Imdur, Coreg, Lantus, Demadex, glyburide. FAMILY HISTORY: Noncontributory. SOCIAL HISTORY: The patient has smoked in the past, but quit several years ago. He denies any alcohol use. REVIEW OF SYSTEMS: Deferred as the patient is intubated. PHYSICAL EXAMINATION: GENERAL: He is now sedated. He is orally intubated. VITAL SIGNS: Temperature is 97.6 degrees Fahrenheit, pulse is 80-100 beats per minute, it is regular, blood pressure 120/79 mmHg, saturation 100%. HEENT: Normocephalic, atraumatic. NECK: Supple, without lymphadenopathy or thyromegaly. CHEST: Breath sounds are fair bilaterally without obvious rales or wheezes. CARDIOVASCULAR: Normal S1, S2. There are no murmurs or gallop. There is no JVD. There is no carotid bruit. Pulses are 2+/4+ bilaterally. ABDOMEN: Soft, nontender, no organomegaly or masses felt. GENITOURINARY: Deferred. RECTAL: Deferred. EXTREMITIES: No cyanosis or clubbing. Notable for right AKA. LABORATORY DATA: Chest x-ray shows cardiomegaly, ET tube approximately 2 cm above the sophia, no obvious infiltrates seen, questionable left lower lobe infiltrates. The chest x-ray is rotated. Troponin is 5.3. Lactic acid is 2. BNP is 6700. EKG showed sustained monomorphic VT. Sodium 134, potassium 5.6, chloride 101, CO2 is 23, BUN is 80, creatinine is 2.3. WBC 7100, hemoglobin 10.3, platelets are normal. Troponin is 5.3 as mentioned above. Arterial blood gas revealed pH 7.32, pCO2 of 36, pO2 of 40 on FIO2 of 40%. IMPRESSION: 1. Cardiac arrest, recurrent ventricular tachycardia, cardiogenic shock. 2. Acute respiratory failure, intubated with 8 mm ET tube. 3. Severe ischemic cardiomyopathy, coronary artery disease, status post coronary artery bypass surgery, status post myocardial infarction, status post biventricular pacemaker, defibrillated. [facility] [address] [place] [address] CONSULTATION Name: RASHIDA FRY JR Room #: 236-P [facility] IN M.R.#: [id number] Admission: 08/19/18 Attend Phys: Rachael Benavidez Mary Ellen Discharge: Date of : 43 Report #: [id number] 4. Acute kidney disease/chronic kidney disease. 5. Hypokalemia. 6. Metabolic acidosis with respiratory compensation due to shock. 7. Peripheral artery disease, status post right above-knee amputation. 8. Remote history of cerebrovascular accident, 2006. 9. Hypotension. 10. Permanent atrial fibrillation, on chronic anticoagulation. 11. Long history of tobacco use, probable chronic obstructive pulmonary disease. RECOMMENDATIONS: We will continue mechanical ventilation, wean O2 for saturation 90%, bronchodilators. We will hold on corticosteroids at this time. DVT and GI prophylaxis will be addressed. The patient is currently being followed by Cardiology regarding his recurrent ventricular tachycardia. Given severe ischemic cardiomyopathy, coronary artery disease, overall look appears to be poor. Thank you for this consultation. <ELECTRONICALLY SIGNED> By: Robinson Soto MD 08/19/18 1303 1049 1211 Robinson Soto MD /nt
--- NOTE | 2018-08-19 13:21 | NUR ---
CXR READS TOO DEEP, RETRACTED 4CM. PICC LINE SECURED,
[2018-08-19 14:04] LABS: URINE BILIRUBIN NEGATIVE (Negative); URINE BLOOD 2+ (Negative); URINE CLARITY CLEAR; URINE COLOR YELLOW; URINE GLUCOSE-RANDOM* NEGATIVE (Negative); URINE KETONES NEGATIVE (Negative); URINE LEUKOCYTES-REFLEX NEGATIVE (Negative); URINE NITRITE-REFLEX NEGATIVE (Negative); URINE PROTEIN (DIPSTICK) 2+ (Negative); URINE SPECIFIC GRAVITY >= 1.030 (1.005-1.035)
[2018-08-19 14:19] LABS: URINE RBC 3-10 Few /HPF (0-2)
[2018-08-19 14:20] LABS: MUCUS >6 Heavy strn/LPF (None Seen)
[2018-08-19 14:21] LABS: HYALINE CASTS 0-3 Few /LPF (None Seen)
[2018-08-19 14:22] LABS: AMORPHOUS URATES Few /LPF (None Seen); BACTERIA-REFLEX None Seen /HPF (None Seen); SQUAMOUS 0-3 Few /LPF (0-3); URINE WBC-REFLEX None Seen /HPF (0-5)
[2018-08-19 14:48] LABS: AMP/METHAMP Negative (Negative); BARBITURATES Negative (Negative); BENZODIAZEPINES POSITIVE (Negative); COCAINE Negative (Negative); METHADONE Negative (Negative); OPIATES Negative (Negative); PCP Negative (Negative)
[2018-08-19 17:31] LABS: ALBUMIN 2.5 g/dL (3.4-5.0); CALCIUM 8.2 mg/dL (8.5-10.1); CREATININE 3.9 mg/dL (0.7-1.3); PHOSPHORUS 4.6 mg/dL (2.5-4.9); POTASSIUM 5.5 mmol/L (3.5-5.1)
--- NOTE | 2018-08-19 18:30 | NUR ---
Patient arrived to ICU 236 from ED. Arrives with amio, dopamine, levophed already infusing. Intubated, sedated with precedex. Some eye opening noted, and biting down on ET tube. No following of commands. See tele strips in paper chart - patient had several instances of rhythm changes with a wide QRS. Fluctuating BPs with MAP ranging 45-70 at times. Seen by cardiology, renal, pulm. Adding pressors as needed to sustain BP, see EMAR. At approx 1050 patient entered into an abnormal rhthym, no pulse, code blue initiated, see code sheets in chart. Family at bedside following event, they do still wish to remain a full code at this time. [employer] at bedside to interrogate, Dr. Sandra Alvarado also at bedside to adjust PM/defibrillator settings. Patient showing AV paced following that. Discussing with sister Meghan at bedside, and patient's children via phone multiple times. Scant urine output, BP MAP continues to decrease despite maxed pressors and drips. Report given to oncoming RN.
--- NOTE | 2018-08-19 19:56 | NUR ---
CODE BLUE: Care assumed at 191. Pt on vent, sat 100% on FiO2 60%; monitor AV paced but pulses very thready. SBP 63 despite maxium doses of Levophed, Vasopressin and Dopamine. Pt on Amiodorone at 1 mg/min and Epinephrine gtt at 4 mcg/min. Pt went into wide complex bradycardia PEA at 1928 and Ariana Small called. Compressions started at 1928; see Code Blue record for further information. Pt coded from 1928 to 1947 without regaining pulse at anytime, Time of called by Dr. Barrera at 1947. Dr. Rodriguez also here and talking with pt's family at time of code.
--- NOTE | 2018-08-21 07:36 | HC ---
[facility] [place] [address] [address] [place] [address] CONSULTATION Name: FRYRASHIDA JR Room #: 236-P [facility] IN M.R.#: [id number] Admission: 08/19/18 Attend Phys: Rachael Hyde Discharge: 08/19/18 Date of : 43 Report #: [id number] THIS REPORT FOR: //name// CC: Chad Lizarraga DATE OF SERVICE: 08/19/2018 REASON FOR CONSULTATION: Elevated creatinine and hyperkalemia. HISTORY OF PRESENT ILLNESS: This is a 72-year-old male with a very longstanding history of an ischemic cardiomyopathy. He has had a longstanding heart failure. We have seen him previously and followed up both here in the hospital and in the office for chronic kidney disease, originally stage 3 and later stage 4. He has always had a cardiorenal component. He presented to the Emergency Room early this morning. When in the Emergency Room, he began developing recurring V-tach. He had a V-tach arrest, was resuscitated and intubated. He was put in the Intensive Care Unit. He is now in the ICU on both Levophed and dopamine. He is intubated. He is on antiarrhythmics. He is still having some wide complex tachycardia, although not leon V-tach that he was having previously. We are asked to see him because of his elevated creatinine level at 3.2 and his potassium level of 5.6. From a renal standpoint, he has longstanding chronic kidney disease. Again, he has a significant cardiorenal component. Over the past several years, his creatinine level is always at least in the 2 up to 3 range, rarely lower. He is on chronic diuretics. He intermittently has gotten hyperkalemic. Reviewing his meds, it looks like he has been on some spironolactone along with his other meds. PAST MEDICAL HISTORY: A longstanding severe cardiomyopathy. He has an ischemic component. He has a prior AICD in place. He has longstanding diabetes and a history of a prior CVA. He has had a prior right hkzus-jxr-cxvz amputation with peripheral vascular disease. He has had many hospitalizations, clinic and ER visits related to these similar problems over the recent years. PAST SURGICAL HISTORY: In addition, he had prior coronary artery bypass graft surgery, right femoral bypass surgery with a right gfugw-jqp-rvfk amputation, biventricular pacemaker placement, he also has a port in the right chest for chronic infusions for which he goes to the infusion clinic, prior bilateral carpal tunnel release. MEDICATIONS ON ADMISSION: As listed from the Emergency Room include torsemide 20 mg b.i.d., atorvastatin 10 mg daily, warfarin 2.5 mg daily, pantoprazole 40 mg daily, aspirin 81 mg daily, isosorbide mononitrate 60 mg daily, carvedilol [address] [address] CONSULTATION Name: FRYRASHIDA E Room #: 236-P [facility] IN M.R.#: [id number] Admission: 08/19/18 Attend Phys: Rachael Hyde Discharge: 08/19/18 Date of : 43 Report #: [id number] 12.5 mg b.i.d., Entresto, Lantus, glimepiride 4 mg daily and several p.r.n. medications. There is also at least one report of spironolactone 25 mg daily, but again, these are all of the ER list, I am not sure how accurate they are. ALLERGIES: LISTED TO JACEK INHIBITORS WITH WHAT SOUNDS LIKE ANGIOEDEMA. FAMILY HISTORY: Noncontributory. SOCIAL HISTORY: The patient is , lives in [place], [place]. He is retired. REVIEW OF SYSTEMS: Unavailable. PHYSICAL EXAMINATION: GENERAL: A 72-year-old male seen in the Intensive Care Unit. He is intubated. He is unresponsive on the vent. Currently, he has a wide complex tachycardia on the monitor, although it looks like it is slightly narrower complex than his V-tach that I see on the EKGs. On one lead, he has some P waves evident. VITAL SIGNS: Blood pressure 94/52, heart rate is about 110-116, respiratory rate 18, oxygen saturation 100%, temperature 97.6 degrees Fahrenheit. HEENT: Shows he is orally intubated. CHEST: Shows coarse breath sounds, but they are symmetrical bilaterally. CARDIOVASCULAR: Heart has distant heart tones. ABDOMEN: Soft, does not appear tender. Diminished bowel sounds. EXTREMITIES: He has right vsrnf-ocv-pwnt amputation. No left lower extremity edema. LABORATORY DATA: Sodium 134, potassium 5.6. This was done in the Emergency Room, chloride 101, bicarbonate 23, BUN 80, creatinine 3.2, glucose 204, calcium 9.4, magnesium 2.1, troponin up to 5.32, white count 7.7, hemoglobin 10.3, hematocrit 33.3, platelets 174,000. No urinalysis available. Blood gas most recent on admission pH 7.22, pCO2 of 30.7, pO2 of 349. ASSESSMENT: 1. Ventricular tachycardia arrest. He has been in cardiogenic shock. He is in the ICU on 2 pressors. He is also on extensive antiarrhythmics. At this point, he is very critically ill, has longstanding cardiomyopathy and I am uncertain how well he is going to respond to all this. Over the years, his heart has gotten worse and worse. We will continue his current therapy and see he responds. 2. Chronic kidney disease, stage 4. Creatinine level is in the range where it has been. He is oliguric post arrest. We will give him some Lasix and see how he responds. Again, he has had a longstanding cardiorenal physiology. 3. Hyperkalemia. Not dramatically acidotic. We will recheck. He got some bicarbonate. We will give him some Lasix. We will hold the spironolactone. [facility] [address] [place] [address] CONSULTATION Name: RASHIDA FRY Room #: 236-P [facility] IN M.R.#: [id number] Admission: 08/19/18 Attend Phys: Rachael Hyde Discharge: 08/19/18 Date of : 43 Report #: [id number] May need further treatment for his potassium if it goes up more. I would note, this patient is not a dialysis candidate with his eventually bad cardiac performance. 4. Longstanding diabetes. 5. Peripheral vascular disease with prior right paapt-mfl-cncf amputation. 6. Anemia. PLAN: 1. We will repeat his potassium level. 2. Lasix 80 mg q.8h. to try to maintain active diuresis. 3. Follow up on his labs. 4. Continue other therapies. <ELECTRONICALLY SIGNED> By: Ignacio Barrios MD 08/21/18 0736 1017 1112 gInacio Barrios MD /celestine
--- NOTE | 2018-08-21 07:59 | HC ---
[facility] [place] [address] [address] [place] [address] CONSULTATION Name: RASHIDA FRY Room #: 236-P [facility] IN M.R.#: [id number] Admission: 08/19/18 Attend Phys: Rachael Hyde Discharge: 08/19/18 Date of : 43 Report #: [id number] THIS REPORT FOR: //name// CC: Chad Jennifer Rachael Lizarraga HISTORY OF PRESENT ILLNESS: The patient is a 72-year-old male. He is known to our service, followed predominantly by Dr. Kilpatrick in my practice. Long history of dietary noncompliance. Severe ischemic cardiomyopathy with an EF of 15%. Has a Bi-V ICD. Paroxysmal atrial fibrillation, hypertension, hypercholesterolemia, history of CVA. He presents to the Emergency Room with progressive dyspnea, shortness of breath and possibly a wide complex tachycardia. Hypotensive he became and he was defibrillated and intubated. Intermittently looks like he is paced. He is currently out of VT. He is initiated on IV amiodarone boluses and drip. He is requiring Levophed for pressor support. He is on Precedex, so he is minimally responsive, but does not sound like there was any prolonged down time. He allegedly has been taking amiodarone. This is from an office note from June last month, amiodarone 200, baby aspirin, atorvastatin 10, carvedilol 12.5 b.i.d., Amaryl 4. Insulin, Imdur, potassium, Entresto 24/, spironolactone 25, Demadex 40 two tablets b.i.d. and warfarin. PAST MEDICAL HISTORY: Pretty much as stated above with an ischemic cardiomyopathy, paroxysmal AFib, hypertension, recurrent heart failure admissions, history of bypass surgery. Chronic kidney disease, baseline creatinine has been around 3. History of CVA, diabetes, hypertension, hypercholesterolemia, peripheral vascular disease with right AKA, left leg bypass surgery and the pacer defibrillator. FAMILY HISTORY: Sister with premature coronary disease. SOCIAL HISTORY: He is a former smoker. No current alcohol use. I am not sure of the family situation. No family is currently present. REVIEW OF SYSTEMS: Not obtainable. EKG looks to be an atrial sensed ventricular paced rhythm. There do appear to be periods of nonsustained VT. PHYSICAL EXAMINATION: GENERAL: He is sedated. He is intubated. VITAL SIGNS: Blood pressure is 104/60, on pressor support. Pulse 70s. HEENT: Eyes reveal xanthelasmas. Pharynx is clear. NECK: Shows preserved upstrokes, although slightly diminished. LUNGS: Clear anteriorly, diminished in the bases. CARDIOVASCULAR: Distant heart tones and a regular rate and rhythm. No significant murmur. ABDOMEN: Slightly distended. EXTREMITIES: Reveal trace of edema. I could not palpate distal pulses. There [facility] [address] [place] [address] CONSULTATION Name: RASHIDA FRY Room #: 236-P [facility] IN M.R.#: [id number] Admission: 08/19/18 Attend Phys: Rachael Hyde Discharge: 08/19/18 Date of : 43 Report #: [id number] is a right AKA. NEUROLOGIC: Not obtainable. SKIN: There are no open wounds or ulcers that I see. ASSESSMENT: 1. Ventricular tachycardia with resultant hypotension. 2. Severe ischemic cardiomyopathy, currently in a paced and/or sinus rhythm. 3. Coronary artery disease with prior coronary artery bypass grafting. 4. Hypertension. 5. Hypercholesterolemia. 6. Peripheral vascular disease with right leg AKA. 7. Diabetes. 8. Chronic kidney disease. 9. History of noncompliance. RECOMMENDATIONS AND PLAN: We will continue pressor support, IV amiodarone. Obtain UA. Repeat the echo, correct electrolytes. We will have the EP Service re-involved here after the weekend to see if we can control this recurrent VT. We will follow with you. Thank you for asking me to assist in the care of this patient. <ELECTRONICALLY SIGNED> By: Chad Rodriguez MD, FACC 08/21/18 0759 0909 1048 Chad Rodriguez MD, FACC /nt
--- NOTE | 2018-08-21 08:24 | EKG ---
[address] [address] ELECTROCARDIOGRAM REPORT Name: FRYRASHIDA JR Room #: 236-[facility] IN M.R.#: [id number] Admission: 08/19/18 Attend Phys: Rachael Hyde Discharge: 08/19/18 Date of : 41 Report #: [id number] THIS REPORT FOR: //name// [facility] Test Date: 2018-08-19 Test Time: 11:09:47 Pat Name: RASHIDA FRY Department: Room: 236 Gender: M Bushel Girl: NATHEN : 1945 Requested By: Rachael Hyde Order Number: [id number] MD: Jai Cox Measurements Intervals [place] Rate: 91 P: 85 [place]: 183 QRS: 244 QRSD: 142 T: 36 QT: 390 QTc: 480 Interpretive Statements Atrial-sensed ventricular-paced complexes No further analysis attempted due to paced rhythm Compared to ECG 08/19/2018 09:16:09 No significant changes Electronically Signed On 08-21-2018 8:24:40 IMPORT CLERK by Jai Cox [email or web address] <ELECTRONICALLY SIGNED> By: Jai Cox MD, [facility] 08/21/18 0824 1109 1109 Jai Cox MD, [facility] /EPI
== END 2018-08-19 19:48 | DRG 682 ==
LOC: ER 03:48 → TBACV 05:29 → EROBS 05:29 → ICU 07:40
PROVIDERS: Internal Medicine Nephrology; Student in an Organized Health Care Education/Training Program; ADMIT Hospitalist
PROC: 4B02XTZ Measurement of Cardiac Defibrillator, External Approach (ICD-10-PCS; principal; 2018-08-19)
PROC: 0BH17EZ Insertion of Endotracheal Airway into Trachea, Via Natural or Artificial Opening (ICD-10-PCS; principal; 2018-08-19)
PROC: 5A2204Z Restoration of Cardiac Rhythm, Single (ICD-10-PCS; principal; 2018-08-19)
PROC: 5A12012 Performance of Cardiac Output, Single, Manual (ICD-10-PCS; principal; 2018-08-19)
DX: N17.9 Acute kidney failure, unspecified (principal); I50.43 Acute on chronic combined systolic (congestive) and diastolic (congestive) heart failure; J96.21 Acute and chronic respiratory failure with hypoxia; I47.2 Ventricular tachycardia; I13.0 Hypertensive heart and chronic kidney disease with heart failure and stage 1 through stage 4 chronic kidney disease, or unspecified chronic kidney disease; E87.2 Acidosis; N18.4 Chronic kidney disease, stage 4 (severe); I46.9 Cardiac arrest, cause unspecified; E11.22 Type 2 diabetes mellitus with diabetic chronic kidney disease; E78.5 Hyperlipidemia, unspecified; I25.5 Ischemic cardiomyopathy; I25.10 Atherosclerotic heart disease of native coronary artery without angina pectoris; I95.9 Hypotension, unspecified; E87.5 Hyperkalemia; D64.9 Anemia, unspecified; I48.2 Chronic atrial fibrillation; I27.20 Pulmonary hypertension, unspecified; E87.6 Hypokalemia; I49.01 Ventricular fibrillation; I48.0 Paroxysmal atrial fibrillation; E78.00 Pure hypercholesterolemia, unspecified; E11.51 Type 2 diabetes mellitus with diabetic peripheral angiopathy without gangrene; Z87.891 Personal history of nicotine dependence; Z95.1 Presence of aortocoronary bypass graft; I25.2 Old myocardial infarction; Z86.73 Personal history of transient ischemic attack (TIA), and cerebral infarction without residual deficits; Z95.810 Presence of automatic (implantable) cardiac defibrillator; Z89.611 Acquired absence of right leg above knee; Z95.820 Peripheral vascular angioplasty status with implants and grafts; Z79.4 Long term (current) use of insulin; Z79.82 Long term (current) use of aspirin; Z79.899 Other long term (current) drug therapy; Z88.8 Allergy status to other drugs, medicaments and biological substances; Z82.49 Family history of ischemic heart disease and other diseases of the circulatory system
CPT/HCPCS: 10078; 27000